=== PATIENT | female | born 1985 | race Caucasian/White ===

== ENCOUNTER 2023-02-17 00:16 | Observation (INO) ==
[2023-02-17] MEDS ORDERED: ONDANSETRON INJ 2 MG/ML 2 ML VIAL IV STA (00:26)
[2023-02-17] MEDS ORDERED: SODIUM CHLORIDE 0.9% 1,000 ML IV ONE ×2 (00:26→01:05)
--- NOTE | 2023-02-17 00:47 | Emergency Department Note ---
Impression & Plan DKA (diabetic ketoacidosis), Influenza A ED Provider Note NAME: MARKEL GILMAN AGE: 37 SEX: F : 1985 ARRIVES VIA: Ambulance INFORMANT: Patient, ED PROVIDER(S): Jr Marcus MD CHIEF COMPLAINT: Influenza HPI: This is a 37-year-old female presenting for nausea/vomiting. Patient was diagnosed to influenza, H3, this morning. She has symptoms since Wednesday. Her physician gave her Tamiflu and did not tell her about any of the adverse side effects. Patient taken to 2 doses of Tamiflu. After starting the Tamiflu she has began having persistent and profuse nausea and vomiting. She has not been to take her medications as result of this. No shortness of breath, chest pain, diarrhea. ROS: See above HPI for pertinent positives & negatives. A total of 10 systems reviewed and were otherwise negative. PAST MEDICAL HISTORY: See Below PAST SURGICAL HISTORY: See Below FAMILY HISTORY: See Below SOCIAL HISTORY: See Below HOME MEDICATIONS: See Below ALLERGIES: See Below VITALS: See Below PHYSICAL EXAMINATION: General: resting comfortably in no acute distress Head: Normocephalic and atraumatic Eyes: Normal inspection, extraocular muscles intact Ear, nose, throat: Normal external exam Neck: Normal range of motion Respiratory: lungs clear to auscultation bilaterally Cardiovascular: Regular rate/rhythm, no murmur GI: soft, nontender, no guarding or rebound Extremities: nontender, moves all extremities Neuro: The patient awake and alert, appropriately conversive, no focal deficits, symmetric faces Skin: Warm, dry, and intact MEDICAL DECISION MAKING: This is a 37-year-old female senting for nausea and vomiting. Patient may have symptoms consistent with influenza versus Tamiflu side effects. Will check basic screening blood work to rule out DKA as patient is a type I diabetic -Laboratory showed anion gap to 17. Will give 2 L of fluid and reevaluation. -Glucose of 355 -Clinically with patient's nausea, vomiting, lack of insulin, suspect slight DKA, will give fluids for resuscitation -Do not believe he requires emergent imaging at this time without hypoxia or abnormal lung sounds -After 2 L, patient appears clinically well but however patient has a anion gap remaining at 14. At this time, will discuss with hospitalist for admission -Discussed with Dr. Saldaña who accepts the patient Differential diagnosis: Influenza, Tamiflu side effects, DKA ER treatment provided: See below Diagnostics interpreted by me: ECG: None Cardiac Monitoring: An order was placed for continuous cardiac monitoring. The monitor shows a rate of 115 with sinus rhythm. Laboratory studies: As stated above and show below. Past Med/Surg History Medical History Anxiety Bipolar 1 disorder Depression Dyslipidemia Hypertension Type 2 diabetes mellitus Surgical History No pertinent past surgical history Social History Smoking Status: Never smoker Tobacco Type: Cigarettes Preferred Language: Danish Feels Safe at Home: Yes Allergies Allergies Allergy/AdvReac Type Severity Reaction Status Date / Time No Known Allergies Allergy Verified 02/17/23 01:18 Home Meds Home Medications Medication Instructions Recorded Confirmed acetaminophen 500 mg tablet 1,000 mg PO Q6H PRN PAIN/FEVER 02/17/23 02/17/23 (Tylenol Extra Strength) doxylamine 6.25 mg-PE 5 mg-DM 10 1 tab PO DIRECTED PRN Cold 02/17/23 02/17/23 mg-acetaminophen 325 mg tablet Symptoms (Vicks NyQuil Severe Cold-Flu) empagliflozin 25 mg tablet 25 mg PO QAM 02/17/23 02/17/23 (Jardiance) gemfibrozil 600 mg tablet 600 mg PO QAM 02/17/23 02/17/23 hydrocodone-homatropine 5 mg-1.5 5 ml PO DIRECTED PRN Cough 02/17/23 02/17/23 mg/5 mL oral syrup insulin aspart U-100 100 unit/mL See Rx Instructions .Route .COMPLEX 02/17/23 02/17/23 (3 mL) subcutaneous pen (Novolog FlexPen U-100 Insulin aspart) insulin glargine 100 unit/mL (3 36 unit subcut HS 02/17/23 02/17/23 mL) subcutaneous pen lisinopril 2.5 mg tablet 2.5 mg PO QAM 02/17/23 02/17/23 metformin 1,000 mg tablet 1,000 mg PO BIDM 02/17/23 02/17/23 oseltamivir 75 mg capsule 75 mg PO BID 02/17/23 02/17/23 pravastatin 10 mg tablet 10 mg PO QDD 02/17/23 02/17/23 sertraline 100 mg tablet 100 mg PO BID 02/17/23 02/17/23 tirzepatide 7.5 mg/0.5 mL 7.5 mg subcut WK 02/17/23 02/17/23 subcutaneous pen injector (Orquidea) Results & Data (ED) Vital Signs Vital Signs - 24 hr 02/17/23 00:21 02/17/23 00:26 02/17/23 02:19 Temperature 37.3 C 37.2 C Temperature Source Oral Oral Pulse Rate 112 H Pulse Rate [Apical] 115 H 105 H Pulse Rhythm [Apical] Regular Pulse Strength [Apical] Normal Respiratory Rate 16 18 16 Respiratory Effort / Characteristics Non-Labored Spontaneous Non-Labored Spontaneous Non-Labored Spontaneous Respiratory Depth Normal Normal Normal Respiratory Pattern Regular Regular Regular Blood Pressure 164/90 H Blood Pressure [Right Arm] 164/90 H 139/91 Blood Pressure Mean 114 Blood Pressure Mean [Right Arm] 114 107 Blood Pressure Position [Right Arm] Lying Pulse Oximetry 93 93 97 Oxygen Delivery Method Room Air Room Air Room Air Sepsis Recent Fever Within 48 Hours Yes Sepsis New/Unexplained Change in Mental Status No Sepsis Action Taken by Nursing No Action Required 02/17/23 04:13 02/17/23 04:13 Temperature Temperature Source Pulse Rate 103 H 103 H Pulse Rate [Apical] Pulse Rhythm [Apical] Pulse Strength [Apical] Respiratory Rate 26 H Respiratory Effort / Characteristics Respiratory Depth Respiratory Pattern Blood Pressure Blood Pressure [Right Arm] Blood Pressure Mean Blood Pressure Mean [Right Arm] Blood Pressure Position [Right Arm] Pulse Oximetry 94 Oxygen Delivery Method Sepsis Recent Fever Within 48 Hours Sepsis New/Unexplained Change in Mental Status Sepsis Action Taken by Nursing Laboratory Data 02/17/23 00:22 02/17/23 02:15 Lab Results 02/17/23 02/17/23 02/17/23 Range/Units 00:20 00:22 02:15 WBC 8.81 (4.8-10.8) K/ul RBC 4.95 (4.20-5.40) M/uL Hgb 14.2 (12.0-16.0) g/dl Hct 42.7 (37.0-47.0) % MCV 86.3 (80.0-100.0) fL MCH 28.7 (25.0-34.0) pg MCHC 33.3 (32.0-36.0) g/dL RDW Std Deviation 41.6 (36.4-46.3) fL RDW Coeff of Gloria 13.2 (11.5-14.5) % Plt Count 106 L (130-400) K/uL MPV 11.8 (9.4-12.4) fL Immature Gran % (Auto) 0.5 % Neut % (Auto) 90.3 % Lymph % (Auto) 3.0 % Webster % (Auto) 6.1 % Eos % (Auto) 0.0 % Baso % (Auto) 0.1 % Neut # (Auto) 7.96 H (1.40-6.50) K/uL Lymph # (Auto) 0.26 L (1.20-3.40) K/uL Webster # (Auto) 0.54 (0.11-0.59) K/uL Eos # (Auto) 0.00 (0.00-0.50) K/uL Baso # (Auto) 0.01 (0.00-0.20) K/uL Immature Gran # (Auto) 0.04 (0.01-0.20) K/uL Sodium 133 L 136 (136-145) mmol/L Potassium 4.2 3.8 (3.5-5.1) mmol/L Chloride 96 L 103 (98-107) mmol/L Carbon Dioxide 20 L 19 L (21-32) mmol/L Anion Gap 17 H 14 H (3-11) BUN 13 11 (6-23) mg/dl Creatinine 0.73 0.62 (0.6-1.2) mg/dl Est Cr Clr Drug Dosing 113.4 133.5 ml/min Est GFR ( Amer) 121.9 133.5 ml/min Est GFR (Non-Af Amer) 105.2 115.2 ml/min BUN/Creatinine Ratio 17.8 17.7 (10-20) Glucose 355 H* 282 H (70-99(Fasting)) mg/dl Calcium 9.6 8.2 L (8.6-10.3) mg/dl Total Bilirubin 0.7 (0.2-1.0) mg/dl AST 10 L (13-39) U/L ALT 16 (7-52) U/L Alkaline Phosphatase 44 (34-104) U/L Total Protein 8.5 H (6.0-8.3) gm/dl Albumin 4.5 (3.4-5.0) gm/dl Globulin 4.0 (2.5-4.0) gm/dl Albumin/Globulin Ratio 1.1 (0.9-2) Adenovirus (PCR) Not Detected (NotDetected) B. pertussis DNA (PCR) Not Detected (NotDetected) B.parapertussis DNA PCR Not Detected (NotDetected) C. pneumoniae DNA (PCR) Not Detected (NotDetected) Coronavirus OC43 (PCR) Not Detected (NotDetected) Coronavirus HKU1 (PCR) Not Detected (NotDetected) Coronavirus 229E (PCR) Not Detected (NotDetected) SARS-CoV-2 (PCR) Not Detected (NotDetected) Coronavirus NL63 (PCR) Not Detected (NotDetected) Human Metapneumovir PCR Not Detected (NotDetected) Influenza A (H3) PCR DETECTED A* (NotDetected) Influenza Type B (PCR) Not Detected (NotDetected) M. pneumoniae (PCR) Not Detected (NotDetected) Parainfluenza 1 (PCR) Not Detected (NotDetected) Parainfluenza 2 (PCR) Not Detected (NotDetected) Parainfluenza 3 (PCR) Not Detected (NotDetected) Parainfluenza 4 (PCR) Not Detected (NotDetected) RSV (PCR) Not Detected (NotDetected) Entero/Rhino (PCR) Not Detected (NotDetected) Administered Medications Discontinued Medications Sodium Chloride (Nss) 1,000 mls @ 999 mls/hr IV .Q1H1M ONE Stop: 02/17/23 01:26 Last Infusion: 02/17/23 01:14 Dose: Infused Documented By: Admin: 02/17/23 00:35 Dose: 999 mls/hr Documented By: VICKEY Acetaminophen (Ofirmev) 1,000 mg in 100 mls @ 400 mls/hr IV NOW STA Stop: 02/17/23 01:19 Last Infusion: 02/17/23 01:35 Dose: Infused Documented By: IDAmelia Admin: 02/17/23 01:12 Dose: 400 mls/hr Documented By: JENNY Sodium Chloride (Nss) 1,000 mls @ 999 mls/hr IV .Q1H1M ONE Stop: 02/17/23 02:05 Last Infusion: 02/17/23 02:41 Dose: Infused Documented By: Admin: 02/17/23 01:15 Dose: 999 mls/hr Documented By: JENNY Ondansetron HCl (Ondansetron Inj 2 Mg/Ml 2 Ml Vial) 4 mg IV NOW STA Stop: 02/17/23 00:27 Last Admin: 02/17/23 00:35 Dose: 4 mg Documented By: VICKEY Discharge Plan Visit Data Chief Complaint: Flu Like Symptoms Stated Complaint: FLU-LIKE SX SINCE WED ED Provider: Jr Marcus Discharge Problem: DKA (diabetic ketoacidosis), Influenza A Patient Disposition: Admitted As Inpatient Discharge Instructions Interventions: ED Discharge Assessment Last Done: 02/17/23 05:34
[2023-02-17 01:01] LABS: Albumin Globulin Ratio 1.1 (0.9-2); Albumin Level 4.5 gm/dl (3.4-5.0); BUN Creatinine Ratio 17.8 (10-20); Bilirubin,Total 0.7 mg/dl (0.2-1.0); Calcium 9.6 mg/dl (8.6-10.3); Creatinine Clr Calc Pharmacy 113.4 ml/min; Est GFR (African American) 121.9 ml/min; Est GFR (Non-African American) 105.2 ml/min; Potassium 4.2 mmol/L (3.5-5.1); Total Protein 8.5 gm/dl (6.0-8.3)
[2023-02-17] MEDS ORDERED: ACETAMINOPHEN 1,000 MG/100 ML VIAL IV STA (01:05)
[2023-02-17 01:16] LABS: Basophils # (auto) 0.01 K/uL (0.00-0.20); Basophils % (auto) 0.1 %; Hematocrit (blood only) 42.7 % (37.0-47.0); Hemoglobin 14.2 g/dl (12.0-16.0); Immature Granulocytes # (auto) 0.04 K/uL (0.01-0.20); Immature Granulocytes % (auto) 0.5 %; Lymphocytes # (auto) 0.26 K/uL (1.20-3.40); Mean Corpuscular Hemoglobin 28.7 pg (25.0-34.0); Mean Corpuscular Hgb Conc 33.3 g/dL (32.0-36.0); Mean Corpuscular Volume 86.3 fL (80.0-100.0); Mean Platelet Volume 11.8 fL (9.4-12.4); Monocytes # (auto) 0.54 K/uL (0.11-0.59); Monocytes % (auto) 6.1 %; Neutrophils # (auto) 7.96 K/uL (1.40-6.50); Neutrophils % (auto) 90.3 %; Platelet Count 106 K/uL (130-400); RDW Coefficient of Variation 13.2 % (11.5-14.5); RDW Standard Deviation 41.6 fL (36.4-46.3); Red Blood Count 4.95 M/uL (4.20-5.40); White Blood Count 8.81 K/ul (4.8-10.8)
[2023-02-17 01:25] LABS: Adenovirus PCR Not Detected (NotDetected); Bordetella parapertussis PCR Not Detected (NotDetected); Bordetella pertussis PCR Not Detected (NotDetected); Chlamydia pneumoniae PCR Not Detected (NotDetected); Coronavirus 229E PCR Not Detected (NotDetected); Coronavirus CoV-2 (COVID19)PCR Not Detected (NotDetected); Coronavirus HKU1 PCR Not Detected (NotDetected); Coronavirus NL63 PCR Not Detected (NotDetected); Coronavirus OC43PCR Not Detected (NotDetected); Human Metapneumovirus PCR Not Detected (NotDetected); Influenza B PCR Not Detected (NotDetected); Mycoplasma pneumoniae PCR Not Detected (NotDetected); Parainfluenza Virus 1 PCR Not Detected (NotDetected); Parainfluenza Virus 2 PCR Not Detected (NotDetected); Parainfluenza Virus 3 PCR Not Detected (NotDetected); Parainfluenza Virus 4 PCR Not Detected (NotDetected); Respiratory Syncytial VirusPCR Not Detected (NotDetected); Rhinovirus/Enterovirus PCR Not Detected (NotDetected)
[2023-02-17 02:11] LABS: Influenza A (H3) PCR DETECTED (NotDetected)
[2023-02-17 03:42] LABS: Calcium 8.2 mg/dl (8.6-10.3); Potassium 3.8 mmol/L (3.5-5.1)
[2023-02-17 03:47] LABS: BUN Creatinine Ratio 17.7 (10-20); Creatinine Clr Calc Pharmacy 133.5 ml/min; Est GFR (African American) 133.5 ml/min; Est GFR (Non-African American) 115.2 ml/min
[2023-02-17] MEDS ORDERED: NITROGLYCERIN SL 0.4 MG/TAB TAB SL PRN (05:33)
[2023-02-17] MEDS ORDERED: HYDROcodone/HOMATROPINE SYRUP 5MG/1.5MG 5ML UDP PO PRN (05:33)
[2023-02-17] MEDS ORDERED: STAT IV Infusion **Titration per Protocol STA (05:33)
[2023-02-17] MEDS ORDERED: ACETAMINOPHEN 325 MG TAB PO PRN (05:33)
[2023-02-17] MEDS ORDERED: PHARMACY GLYCEMIC MGMT CONSULT PRN (05:33)
[2023-02-17] MEDS ORDERED: DKA GOAL RANGE 150-250 mg/dl ONE (05:33)
[2023-02-17] MEDS ORDERED: SODIUM CHLORIDE 0.9% 1,000 ML IV SCH (05:33)
[2023-02-17] MEDS ORDERED: ONDANSETRON INJ 2 MG/ML 2 ML VIAL IV PRN (05:33)
[2023-02-17] MEDS ORDERED: NovoLIN-R BOLUS FROM BAG IV ONE (06:00)
[2023-02-17] MEDS ORDERED: CARBOHYDRATES FOR HYPOGLYCEMIA PO PRN (06:00)
[2023-02-17] MEDS ORDERED: DEXTROSE 50% 50 ML SYRINGE IV PRN (06:00)
[2023-02-17] MEDS ORDERED: GLUCAGON FOR INJ 1 MG VIAL IM PRN (06:00)
[2023-02-17] MEDS ORDERED: GLUCOSE 10 TAB/TUBE PO PRN (06:00)
[2023-02-17] MEDS ORDERED: INSULIN REGULAR 250 UNITS in SODIUM CHLORIDE 0.9% 247.5 ML IV SCH (06:00)
[2023-02-17] MEDS ORDERED: GLUCOSE 40% GEL 15 GM TUBE PO PRN (06:00)
[2023-02-17] MEDS ORDERED: INSULIN ASPART PER UNIT CHARGE SC SCH (07:30)
[2023-02-17] MEDS ORDERED: PENDING 1/2NSS+20mEq KCL IVF SCH (08:00)
[2023-02-17] MEDS ORDERED: PENDING D5 1/2NS+20mEq KCL IVF SCH (08:00)
[2023-02-17] MEDS ORDERED: ENOXAPARIN INJ 40 MG/0.4 ML SYR SQ SCH (09:00)
[2023-02-17] MEDS ORDERED: lisinopril 2.5 MG TAB PO SCH (09:00)
[2023-02-17] MEDS ORDERED: SERTRALINE HCL 100 MG TABLET PO SCH (09:00)
[2023-02-17] MEDS ORDERED: ATORVASTATIN 20 MG TAB PO SCH (09:00)
--- OUTSIDE RECORDS SUMMARY | 2023-02-17 09:19 | External Medical Summary ---
Author Name Unknown Address Unknown Organization K01:LABORAT[facility] [address] [facility] [address] Laboratory Report Ordering Provider Test Date Status JASPREET BENITO 02/15/2023 11:07:58 Final Observation Date Value Abnormality Reference (Units) Status Streptococcus pyogenes DNA [Presence] in Throat by MINDI with probe detection 02/15/2023 11:07:58 Negative. No Group A Streptococcus detected by PCR (amplified probe). Negative Final This test was developed and its performance characteristics determined by [facility]. It has not been cleared or approved by the FDA. The laboratory is regulated under CLIA as qualified to perform high- complexity testing. This test is used for clinical purposes. It should not be regarded as investigational or for research. Performing Location [facility] [place] [facility] [address] [facility] [address]
--- OUTSIDE RECORDS SUMMARY | 2023-02-17 09:19 | External Medical Summary | Summary of Care ---
Author Name Unknown Organization [facility] Address [address] [place] [address] Phone [phone] Care Team Providers Care Cosmetics Demonstrator Name Role Phone Jackie Rivera MD Primary Care Provid er Reason for Visit * Reason Onset Date Comments Fax 02/01/2023 Encounter Details Date Type Department Care Team (Late st Contact Info) Description 02/01/[address] [facility] [address] [place] [address] Jackie Rivera MD [address] [place] [address] Fax Allergies No known active allergiesdocumented as of this encounter (statuses as of 02/04/2023) Medications Medication Sig Dispensed Refills Start Date End Date Status Accu-Chek Guide Me w/Device Kit Use as directed. Use to test blood sugars 4 times a day Dx: E11.9 may substitute preferred brand 1 Kit 0 07/03/2020 Active Empagliflozin 25 MG Oral Tablet (Jardiance)Indicati ons:Type 2 diabetes mellitus with hemoglobin A1c goal of less than 7.0% ([facility]) Take 1 Tablet by mouth in the morning. 90 Tablet 3 03/10/2022 Active Accu-Chek Guide In Vitro Strip (Glucose Blood)Indications:T ype 2 diabetes mellitus with hemoglobin A1c goal of less than 7.0% (HCC) USE TO TEST BLOOD SUGARS 4 TIMES A DAY DX: E11.9 MAY SUBSTITUTE PREFERRED BRAND 400 Strip 3 03/10/2022 Active Accu-Chek FastClix LancetsIndications: Type 2 diabetes mellitus with hemoglobin A1c goal of less than 7.0% (HCC) Use to test blood sugars 4 times a day Dx: E11.9 may substitute preferred brand 408 Each 3 03/10/2022 Active metFORMIN HCl 1000 MG Oral Tablet (Glucophage)Indicat ions:Type 2 diabetes mellitus with hemoglobin A1c goal of less than 7.0% (HCC) TAKE BY MOUTH 1 TABLET 2 TIMES A DAY WITH MORNING AND EVENING MEALS . 180 Tablet 3 03/10/2022 Active Gemfibrozil 600 MG Oral Tablet (Lopid)Indications: High triglycerides,Dysli pidemia, goal LDL below 100 Take 1 tab once a day in the morning. 90 Tablet 3 03/10/2022 Active Insulin Glargine Solostar 100 UNIT/ML Subcutaneous Solution Pen-injector Inject 36 Units under the skin in the morning. 45 mL 3 05/06/2022 Active Fluticasone Propionate 50 MCG/ACT Nasal Suspension (Flonase)Indication s:Viral URI with cough Administer 2 Sprays into each nostril in the morning. 1 Each 0 05/26/2022 Active BD Pen Needle Short U/F 31G X 8 MM (Insulin Pen Needle)Indications: Type 2 diabetes mellitus with hemoglobin A1c goal of less than 7.0% (HCC) USE WITH LANTUS AND NOVOLOG TO INJECT 4 TIMES A DAY. DX E11.9 300 Each 2 06/19/2022 Active Mounjaro 10 MG/0.5ML Subcutaneous Solution Pen-injector (Tirzepatide)Indica tions:Type 2 diabetes mellitus with hemoglobin A1c goal of less than 7.0% (HCC) Inject 10 mg under the skin once a week. 2 mL 3 08/30/2022 Active Additional Information Patient not taking.Reported on 10/22/2022 Lisinopril 2.5 MG Oral Tablet (Prinivil)Indicatio ns:Microalbuminuria ,HTN, goal below 130/80 Take 1 Tablet by mouth daily. 90 Tablet 3 09/11/2022 Active Pravastatin Sodium 10 MG Oral Tablet (Pravachol)Indicati ons:Dyslipidemia Take 1 Tablet by mouth daily with dinner. 90 Tablet 3 09/11/2022 Active Sertraline HCl 100 MG Oral Tablet (Zoloft)Indications :Generalized anxiety disorder,Adjustment disorder with depressed mood TAKE 1 TABLET BY MOUTH IN THE MORNING AND BEFORE BEDTIME 60 Tablet 5 09/17/2022 Active NovoLOG FlexPen 100 UNIT/ML Subcutaneous Solution Pen-injector (insulin aspart)Indications: Type 2 diabetes mellitus with hemoglobin A1c goal of less than 7.0% (HCC) INJECT 30 UNITS BEFORE BREAKFAST, 36 UNITS BEFORE LUNCH, AND 30 UNITS BEFORE SUPPER 30 mL 5 10/12/2022 Active Mounjaro 7.5 MG/0.5ML Subcutaneous Solution Pen-injector (Tirzepatide)Indica tions:Type 2 diabetes mellitus without complication, with long-term current use of insulin ([facility]) Inject 7.5 mg under the skin once a week. 2 mL 3 01/19/2023 Active documented as of this encounter (statuses as of 02/04/2023) Active Problems Problem Noted Date Diagnosed Date Dyslipidemia 09/11/2022 Microalbuminuria 03/10/2022 Food insecurity 01/19/2022 Overview: Per [facility] Protocol Family history of Troy's disease 11/14/2021 Severe obesity with body mas s index (BMI) of 35.0 to 39.9 with serious comorbidity 11/04/2021 Obesity, Class II, BMI 35-39.9, isolated (see ac tual BMI) 05/20/2020 Hypertension 10/26/2011 Overview: Per HTN Protocol #27. DYSLIPIDEMIA, GOAL LDL BELOW 100 02/25/2009 Overview: Per Lipid Taxonomy. Type 2 diabetes mellitus 01/03/2009 Overview: Per Diabetes Taxonomy. ICD-10 update of inactive term High triglycerides 11/04/2008 Anxiety Overview: sees Psychiatry Depression Overview: sees Psychiatry [place] documented as of this encounter (statuses as of 02/04/2023) Resolved Problems Problem Noted Date Diagnosed Date Resolved Date Affective psychosis, bipolar 11/05/2016 09/11/2022 Obesity, morbid (more than 1 00 lbs over ideal weight or BMI > 40) 08/20/2009 06/10/2017 Overview: Per Obesity Protocol, #19 ICD-10 update of inactive term Major depressive disorder Overview: sees Psychiatry ICD-10 update of inactive term documented as of this encounter (statuses as of 02/04/2023) Immunizations Name Administration Dates Next Due HPV Vaccine, 4-Valent 02/04/2010,07/25/2009,06/2009 Hepatitis B, 20+ yrs 04/30/2020,12/29/2019,10/10 Pneumococcal Polysaccharide PPV23 (Pneumovax) 04/11/2009 Seasonal Influenza, QUAD, wi th Preserv, 6 mons & Above, 0.5 mL, IM 02/05/2017 Seasonal Influenza, Quadriva lent, No Preserve, IM 01/01/2021,11/14/2018,12/10/2014 Seasonal Influenza, Recombin ant, RIV4, PF, (Flublock) 12/25/2019 Seasonal Influenza, Split, I IV3, With Preserve, Inj 12/07/2013,12/06/2013,01/06/2013,01/12,12/11/2010,02/04/2010 TD, Preservative Free 10/11/2019,08/06/2001 TDAP (age 11 and older)(Adacel) 04/11/2009 documented as of this encounter Social History Tobacco Use Types Packs/Day Years Used Date Smoking Tobacco: Never Smokeless Tobacco: Never Alcohol Use Standard Drinks/Week Comments No 0 (1 standard drink = 0.6 oz pur e alcohol) PHQ-2 Answer Date Recorded PHQ Adult Total Score 2 11/04/2021 Hunger Vital Sign Answer Date Recorded Within the past 12 months, y ou worried that your food would run out before you got the money to buy more. Sometimes true Within the past 12 months, t he food you bought just didn't last and you didn't have money to get more. Sometimes true Sex and Gender Information Value Date Recorded Sex Assigned at Female 12/31/2021 7:26 AM EDT Gender Identity Female 12/31/2021 7:26 AM EDT Sexual Orientation Straight 12/31/2021 7: 26 AM EDT Job Start Date Occupation Industry Not on file Not on file Not on file documented as of this encounter Miscellaneous Notes * Telephone Encounter - Lashell Singletary OSA - 02/04/2023 10:10 AM EST 02/04/23 DK checked the filing cabinet where orders are filed after being faxed and the paperwork for [facility] was successfully faxed back to [facility] on January 25 and February 02. [facility] refaxed the 3 orders and called [facility] and talked to Pat and confirmed that all three orders were indeed received and scanned into the pts chart. * Telephone Encounter - Odette Pink LPN - 02/03/2023 1:55 PM EST Called [facility] and requested they refax order to us. They will fax. * Telephone Encounter - Hunter Lopez RPh - 02/02/2023 2:34 PM EST No forms have been received by [facility] at [place] as of 02/02/2023 at 2:53 PM . Hunter Wilson RPh, CACP, CDE Clinical Pharmacist [facility] 02/02/2023, 2:53 PM * Telephone Encounter - Maricruz Monahan OSA - 02/01/2023 2:31 PM EST [facility] medical faxed an order for decom supplies 01/26/23. They are asking that it be signed and faxedback. documented in this encounter Plan of Treatment Upcoming Encounters Date Type Department Care Team (Late st Contact Info) Description 02/16/2023 6:10 PM EST Pharmacy Pharmacy, [place] [address] [place] [address] [place], [facility] [address] [facility], [place] [address] 03/19/2023 8:00 AM EST Office Visit Family [facility], [place] [address] [facility], [place] [id number] Jackie Rivera MD [address], [place] [address] Health Maintenance Due Date Last Done Comments COVID-19 Vaccine (#1) 1985 Hepatitis C Screening 06/27/2003 Pneumococcal Vaccine: Pediatrics (0 to 5 Years) and At-Risk Patients (6 to 64 Years) (2 - PCV) 04/11/2010 04/11/2009 HPV/Co-Test 06/27/2015 Cervical Cancer Screening 12/21/2021 Pap Smear 12/21/2021 12/21/2018 Diabetic Eye Exam 06/12/2022 06/12/2021, , 04/14/2013, Additional history exists Depression Screening 11/04/2022 11/04/2021 Diabetic Foot Exam 11/04/2022 11/04/2021, 0 08/08/2020, 10/11/2019, Additional history exists Influenza Vaccine (FLU shot) (#1) 2022 01/01/2021, 12/25/2019, 11/14/2018, Additional history exists HbA1c 03/10/2023 09/07/2022, 04/09, 11/04/2021, Additional history exists Albumin/Creatinine Ratio 05/05/2023 023, 04/30/2020, 05/10/2018, Additional history exists GFR 05/05/2023 05/05/2022, 10/08, 05/20/2021, Additional history exists B-12 09/08/2023 09/07/2022, 05/06, 04/30/2020, Additional history exists DTaP,Tdap,and Td Vaccines (4 - Td or Tdap) 10/10/2029 10/11/2019, 04/11/2009, 08/06/2001 GARDASIL-HPV IMMUNIZATION SERIES Completed 02/04/2010, 07/25/2009, 04/11/2009 Hepatitis B Completed 04/30/2020, 12/07, 10/11/2019 MENINGOCOCCAL (MENACTRA/MENVEO) Aged Out No longer eligible based on patient's age to complete this topic documented as of this encounter Medical Devices Not on filedocumented as of this encounter Care Teams Cosmetics Demonstrator Relationship Specialty Start Date End Date Jackie Rivera MD [address] [facility], [place] [address] PCP - General Family Medicine 11/03/21 documented as of this encounter
--- OUTSIDE RECORDS SUMMARY | 2023-02-17 09:19 | External Medical Summary | Summary of Care ---
Author Name Unknown Organization [facility] Address [address] [place] [address] Phone [phone] Care Team Providers Care Edge Grinder Name Role Phone Jackie Rivera MD Primary Care Provid er Reason for Visit * Reason Comments Appointment Encounter Details Date Type Department Care Team (Late st Contact Info) Description 02/16/2023 6:10 PM [facility] Pharmacy, [place] [address] [place] [address] [facility] [address] [place] [address] Type 2 diabetes mellitus without complication, with long-term current use of insulin ([facility])* Allergies No known active allergiesdocumented as of this encounter (statuses as of 02/16/2023) Medications Medication Sig Dispensed Refills Start Date End Date Status Accu-Chek Guide Me w/Device Kit Use as directed. Use to test blood sugars 4 times a day Dx: E11.9 may substitute preferred brand 1 Kit 0 07/03/2020 Active Additional Information Patient not taking.Reported on 02/15/2023 Empagliflozin 25 MG Oral Tablet (Jardiance)Indicati ons:Type 2 diabetes mellitus with hemoglobin A1c goal of less than 7.0% (HCC) Take 1 Tablet by mouth in the morning. 90 Tablet 3 03/10/2022 Active Accu-Chek Guide In Vitro Strip (Glucose Blood)Indications:T ype 2 diabetes mellitus with hemoglobin A1c goal of less than 7.0% (HCC) USE TO TEST BLOOD SUGARS 4 TIMES A DAY DX: E11.9 MAY SUBSTITUTE PREFERRED BRAND 400 Strip 3 03/10/2022 Active Additional Information Patient not taking.Reported on 02/15/2023 Accu-Chek FastClix LancetsIndications: Type 2 diabetes mellitus with hemoglobin A1c goal of less than 7.0% (HCC) Use to test blood sugars 4 times a day Dx: E11.9 may substitute preferred brand 408 Each 3 03/10/2022 Active Additional Information Patient not taking.Reported on 02/15/2023 metFORMIN HCl 1000 MG Oral Tablet (Glucophage)Indicat [...] the morning. 1 Each 0 05/26/2022 Active Additional Information Patient not taking.Reported on 02/15/2023 BD Pen Needle Short U/F 31G X [...] hemoglobin A1c goal of less than 7.0% ([facility]) INJECT 30 UNITS BEFORE BREAKFAST, 36 UNITS BEFORE LUNCH, AND 30 UNITS BEFORE SUPPER 30 mL 5 10/12/2022 Active Mounjaro 7.5 MG/0.5ML Subcutaneous Solution Pen-injector (Tirzepatide)Indica tions:Type 2 diabetes mellitus without complication, with long-term current use of insulin ([facility]) Inject 7.5 mg under the skin once a week. 2 mL 3 01/19/2023 Active HYDROcodone Bit-Homatrop MBr 5-1.5 MG/5ML Oral Solution (Hycodan)Indication s:Sore throat,Fever, unspecified fever cause,Malaise and fatigue Take 5 mL by mouth every 6 hours as needed for Cough. 120 mL 0 02/15/2023 Active documented as of this encounter (statuses as of 02/16/2023) Active Problems Problem Noted Date Diagnosed Date [...] as of this encounter (statuses as of 02/16/2023) Resolved Problems Problem Noted Date Diagnosed Date Resolved Date Affective psychosis, bipolar 11/05/2016 09/11/2022 Obesity, morbid (more than 1 00 lbs over ideal weight or BMI > 40) 08/20/2009 06/10/2017 Overview: Per Obesity Protocol, #19 ICD-10 update of inactive term Major depressive disorder Overview: sees Psychiatry ICD-10 update of inactive term documented as of this encounter (statuses as of 02/16/2023) Immunizations Name Administration Dates Next Due HPV [...] Packs/Day Years Used Date Smoking Tobacco: Never Passive Smoke Exposure: Current Smokeless Tobacco: Never Alcohol Use Standard Drinks/Week [...] on file documented as of this encounter Progress Notes * Mariella Burroughs PHARM Tech - 02/16/2023 8:20 AM EST Patient Phone Numbers [employer] [phone] Sent patient Veodia message to schedule [facility] appointment for diabetes management. [facility] message sent --yes Clinic will follow up again in 4 week(s). [Attempt # 2] Thank you, Mariella Burroughs Rad Tech [facility] 02/16/2023,8:20 AM documented in this encounter Plan of Treatment Upcoming Encounters Date Type Department Care Team (Late st Contact Info) Description 03/16/2023 6:10 PM EST Pharmacy Pharmacy, [place] [address] [place] [facility] [place] [address] [facility] [address] [place] [facility] [address] 03/19/2023 8:00 AM EST Office Visit [facility], [place] [address] [facility] [phone] Jackie Rivera MD [address] [place] [facility] [address] Health Maintenance Due Date Last Done Comments [...] Not on filedocumented as of this encounter Visit Diagnoses Diagnosis Type 2 diabetes mellitus without complication, with long-term current use of insulin (HCC)- Primary documented in this encounter Additional Health Concerns Infection Onset Date Last Indicated Resolved Time Influenza (seasonal) 02/15/2023 02/15/2023 documented as of this encounter Care Teams Edge Grinder Relationship Specialty Start Date End Date Jackie Rivera MD [address] [place] [address] PCP - General Family Medicine 11/03/21 documented as of this encounter
--- OUTSIDE RECORDS SUMMARY | 2023-02-17 09:19 | External Medical Summary ---
Author Name Unknown Address Unknown Organization K01:[facility] [place] [address] [facility] [address] Laboratory Report Ordering Provider Test Date Status JASPREET BENITO 02/15/2023 11:06:49 Final Observation Date Value Abnormality Reference (Units ) Status Adenovirus DNA [Presence] in Nasopharynx by MINDI with non-probe detection 02/15/2023 11:06:49 Negative Negative Final Human coronavirus 229E RNA [Presence] in Nasopharynx by MINDI with non-probe detection 02/15/2023 11:06:49 Negative Negative Final Human coronavirus HKU1 RNA [Presence] in Nasopharynx by MINDI with non-probe detection 02/15/2023 11:06:49 Negative Negative Final Human coronavirus NL63 RNA [Presence] in Nasopharynx by MINDI with non-probe detection 02/15/2023 11:06:49 Negative Negative Final Human coronavirus OC43 RNA [Presence] in Nasopharynx by MINDI with non-probe detection 02/15/2023 11:06:49 Negative Negative Final SARS-CoV-2 (COVID-19) RNA [Presence] in Nasopharynx by MINDI with non-probe detection 02/15/2023 11:06:49 Negative Negative Final Human metapneumovirus RNA [Presence] in Nasopharynx by MINDI with non-probe detection 02/15/2023 11:06:49 Negative Negative Final Rhinovirus+Enterovirus RNA [Presence] in Nasopharynx by MINDI with non-probe detection 02/15/2023 11:06:49 Negative Negative Final Influenza virus A H3 RNA [Presence] in Nasopharynx by MINDI with non-probe detection 02/15/2023 11:06:49 Positive Abnormal Negative Final Influenza A virus Subtype H3 detected by PCR (amplified probe). Test results reported to [facility]. Influenza virus B RNA [Prese nce] in Nasopharynx by MINDI with non-probe detection 02/15/2023 11:06:49 Negative Negative Final Parainfluenza virus 1 RNA [P resence] in Nasopharynx by MINDI with non-probe detection 02/15/2023 11:06:49 Negative Negative Final Parainfluenza virus 2 RNA [P resence] in Nasopharynx by MINDI with non-probe detection 02/15/2023 11:06:49 Negative Negative Final Parainfluenza virus 3 RNA [P resence] in Nasopharynx by MINDI with non-probe detection 02/15/2023 11:06:49 Negative Negative Final Parainfluenza virus 4 RNA [P resence] in Nasopharynx by MINDI with non-probe detection 02/15/2023 11:06:49 Negative Negative Final Respiratory syncytial virus RNA [Presence] in Nasopharynx by MINDI with non-probe detection 02/15/2023 11:06:49 Negative Negative F inal Bordetella pertussis.pertuss is toxin promoter region [Presence] in Nasopharynx by MINDI with non-probe detection 02/15/2023 11:06:49 Negative Negative Final Chlamydophila pneumoniae DNA [Presence] in Nasopharynx by MINDI with non-probe detection 02/15/2023 11:06:49 Negative Negative Final Mycoplasma pneumoniae DNA [P resence] in Nasopharynx by MINDI with non-probe detection 02/15/2023 11:06:49 Negative Negative Final Bordetella parapertussis IS1 001 DNA [Presence] in Nasopharynx by MINDI with non-probe detection 02/15/2023 11:06:49 Negative Negative F inal
The primers that detect Rhinovirus may cross react with some Enterorviruses. The validation of bronchial specimens, tracheal aspirates, and throats for this assay was developed and performance characteristics determined by [employer]. The validation of alternate specimen types has not been cleared or approved by the U.S. Food and Drug Administration (FDA). It has been determined that such clearance or approval is not necessary. Performing Location [facility] [place] [facility] [address] [facility] [place]. [facility] [address]
--- OUTSIDE RECORDS SUMMARY | 2023-02-17 09:19 | External Medical Summary | Summary of Care ---
Author Name Unknown Organization [facility] Address [address] [place] [address] Phone [phone] Care Team Providers Care Manager Of Procurement Name Role Phone Jackie Rivera MD Primary Care Provid er Encounter Details Date Type Department Care Team (Late st Contact Info) Description 02/16/2023 Telephone [facility] [address] [place] [address] Jackie Rivera MD [address] [place] [address] Allergies No known active allergiesdocumented as of [...] hemoglobin A1c goal of less than 7.0% ([facility]) Take 1 Tablet by mouth in the [...] hemoglobin A1c goal of less than 7.0% ([facility]) INJECT 30 UNITS BEFORE BREAKFAST, 36 UNITS BEFORE LUNCH, AND 30 UNITS BEFORE SUPPER 30 mL 5 10/12/2022 Active Mounjaro 7.5 MG/0.5ML Subcutaneous Solution Pen-injector (Tirzepatide)Indica tions:Type 2 diabetes mellitus without complication, with long-term current use of insulin ([facility]) Inject 7.5 mg under the skin once a week. 2 mL 3 01/19/2023 Active HYDROcodone Bit-Homatrop MBr 5-1.5 MG/5ML Oral Solution (Hycodan)Indication s:Sore throat,Fever, unspecified fever cause,Malaise and fatigue Take 5 mL by mouth every 6 hours as needed for Cough. 120 mL 0 02/15/2023 Active Oseltamivir Phosphate 75 MG Oral Capsule (Tamiflu)Indication s:Influenza A Take 1 Capsule by mouth in the morning and 1 Capsule before bedtime. Do all this for 5 days. For 5 days.. 10 Capsule 0 02/16/2023 02/21/2023 Active documented as of this encounter (statuses as of 02/16/2023) Active Problems Problem Noted Date Diagnosed Date Dyslipidemia 09/11/2022 Microalbuminuria 03/10/2022 Food insecurity 01/19/2022 Overview: Per [facility] Protocol Family history of Troy's disease [...] encounter Miscellaneous Notes * Telephone Encounter - Jackie Rivera MD - 02/16/2023 12:50 PM EST See result note Spoke with patient over the phone, she was hoarse and couldn't speak so she allowed her mom to speak with me - and we discussed influenza A positive result, supportive care, start tamiflu. Sent to patient's pharmacy of choice. Answered all questions. documented in this encounter Plan of Treatment Upcoming Encounters Date Type Department Care Team (Late st Contact Info) Description 02/16/2023 6:10 PM EST Pharmacy Pharmacy, [place] [address] [place] [address] [place], [facility] [place] [address] Type 2 diabetes mellitus without complication, with long-term current use of insulin (HCC)* 03/16/2023 6:10 PM EST Pharmacy Pharmacy, [place] [address] [place] [facility] [place] [address] [facility] [address] [place] [facility] [place] [place] [address] 03/19/2023 8:00 AM EST Office Visit [facility], [place] [address] [facility], [place] [phone] Jackie Rivera MD [address] [facility], [place] [id number] Health Maintenance Due Date Last Done Comments [...] long-term current use of insulin (HCC)- Primary Influenza A- Primary Influenza with other respiratory manifestations documented in this encounter Additional Health Concerns Infection Onset Date Last Indicated Resolved Time Influenza (seasonal) 02/15/2023 02/15/2023 documented as of this encounter Care Teams Manager Of Procurement Relationship Specialty Start Date End Date Jackie Rivera MD [address] [place] [address] PCP - General Family Medicine 11/03/21 documented as of this encounter
--- OUTSIDE RECORDS SUMMARY | 2023-02-17 09:19 | External Medical Summary | Summary of Care ---
Author Name Unknown Organization [facility] Address [address] [place] [address] Phone [phone] Care Team Providers Care Machine Hoop Maker Name Role Phone Jackie Rivera MD Primary Care Provid er Reason for Visit * Reason Comments Acute Fever with sweats an d chillsSorethroat with difficulty swollowing and talkingHead and body achesPainful coughing fits with yellowish/redish dischargeUnable to eat Sneezing Encounter Details Date Type Department Care Team (Late st Contact Info) Description 02/15/2023 10:40 AM EST Office Visit [facility] [address] [place] [address] Jackie Rivera MD [address] [place] [address] Fever, unspecified fever cause*; Sore throat; Malaise and fatigue Allergies No known active allergiesdocumented as of this encounter (statuses as of 02/15/2023) Medications Medication Sig Dispensed Refills Start Date [...] hemoglobin A1c goal of less than 7.0% ([facility]) INJECT 30 UNITS BEFORE BREAKFAST, 36 UNITS BEFORE LUNCH, AND 30 UNITS BEFORE SUPPER 30 mL 5 10/12/2022 Active Mounjaro 7.5 MG/0.5ML Subcutaneous Solution Pen-injector (Tirzepatide)Indica tions:Type 2 diabetes mellitus without complication, with long-term current use of insulin ([facility]) Inject 7.5 mg under the skin once a week. 2 mL 3 01/19/2023 Active HYDROcodone Bit-Homatrop MBr 5-1.5 MG/5ML Oral Solution (Hycodan)Indication s:Sore throat,Fever, unspecified fever cause,Malaise and fatigue Take 5 mL by mouth every 6 hours as needed for Cough. 120 mL 0 02/15/2023 Active documented as of this encounter (statuses as of 02/15/2023) Active Problems Problem Noted Date Diagnosed Date Dyslipidemia 09/11/2022 Microalbuminuria 03/10/2022 Food insecurity 01/19/2022 Overview: Per [facility] Protocol Family history of Troy's [...] as of this encounter (statuses as of 02/15/2023) Resolved Problems Problem Noted Date Diagnosed Date Resolved Date Affective psychosis, bipolar 11/05/2016 09/11/2022 Obesity, morbid (more than 1 00 lbs over ideal weight or BMI > 40) 08/20/2009 06/10/2017 Overview: Per Obesity Protocol, #19 ICD-10 update of inactive term Major depressive disorder Overview: sees Psychiatry ICD-10 update of inactive term documented as of this encounter (statuses as of 02/15/2023) Immunizations Name Administration Dates Next Due HPV [...] Passive Smoke Exposure: Current Smokeless Tobacco: Never Tobacco Cessation:Counseling Given: Not Answered Alcohol Use Standard Drinks/Week Comments No 0 [...] on file documented as of this encounter Last Filed Vital Signs Vital Sign Reading Time Taken Comments Blood Pressure 108/60 02/15/2023 10:50 AM EST Pulse 99 02/15/2023 10:50 AM EST Temperature 36.8 C (98.2 F) 02/15/2023 1 0:50 AM EST Respiratory Rate 18 02/15/2023 10:5 0 AM EST Oxygen Saturation 97% 02/15/2023 10: 50 AM EST Inhaled Oxygen Concentration - - Weight 86.1 kg (189 lb 12.8 oz) 023 10:50 AM EST Height - - Body Mass Index 33.62 09/11/2022 7:39 AM EDT documented in this encounter Progress Notes * Jackie Rivera MD - 02/15/2023 10:54 AM EST ASSESSMENT / PLAN: Kit Littlejohn is a 37 year old female with PMHx T2DM on insulin / anxiety / bipolar / depression / h/o club foot s/p 4 pedal surgeries / obesity / HTN / hypertriglyceridemia - here for acute A/P: This is day 4 of illness and not improving - reviewed supportive care like steroid containing nasalsprays vs saline spray, antihistamine, and pushing fluids. Sugar free hycodan sent Discussed risks and benefits of proceeding with supportive care at this time. Patient elects to proceed. Script sent and instructed on use. no note requested. Fever, unspecified fever cause (Primary) - RESPIRATORY PATHOGEN PANEL, PCR; Future; Expected date: 02/15/2023 - RESPIRATORY PATHOGEN PANEL, PCR - GROUP A STREP PCR - STREP A SCREEN, POINT OF CARE (ENTER/EDIT) - HYDROcodone Bit-Homatrop MBr 5-1.5 MG/5ML Oral Solution (Hycodan); Take 5 mL by mouth every 6 hours as needed for Cough. Sore throat - RESPIRATORY PATHOGEN PANEL, PCR; Future; Expected date: 02/15/2023 - RESPIRATORY PATHOGEN PANEL, PCR - GROUP A STREP PCR - HYDROcodone Bit-Homatrop MBr 5-1.5 MG/5ML Oral Solution (Hycodan); Take 5 mL by mouth every 6 hours as needed for Cough. Malaise and fatigue - RESPIRATORY PATHOGEN PANEL, PCR; Future; Expected date: 02/15/2023 - RESPIRATORY PATHOGEN PANEL, PCR - HYDROcodone Bit-Homatrop MBr 5-1.5 MG/5ML Oral Solution (Hycodan); Take 5 mL by mouth every 6 hours as needed for Cough. If needed, prefers contact by: Ok to leave message on phone: SUBJECTIVE: Nursing Notes: Odette Pink LPN 02/15/23 1052 Signed Chief Complaint Patient presents with Acute Fever with sweats and chills Sorethroat with difficulty swollowing and talking Head and body aches Painful coughing fits with yellowish/redish discharge Unable to eat Sneezing HPI: Kit Littlejohn is a 37 year old female. Here for recheck. This is day 4 of illness - endorses fevers / chills / sore throat / cough . Has tried covid test was negative this morning Sick contacts? no Missed days of work / needs doctor's note? no Sugars are stable Appetite decr Reviewed sources 1- Patient Active Problem List Diagnosis Code High triglycerides E78.1 Anxiety F41.9 Depression F32.A Type 2 diabetes mellitus (HCC) E11.9 DYSLIPIDEMIA, GOAL LDL BELOW 100 E78.5 Hypertension I10 Obesity, Class II, BMI 35-39.9, isolated (see actual BMI) E66.9 [place] Q66.89 Severe obesity with body mass index (BMI) of 35.0 to 39.9 with serious comorbidity (HCC) E66.01 Family history of Troy's disease Z83.49 Food insecurity Z59.41 Microalbuminuria R80.9 Dyslipidemia E78.5 Current Outpatient Medications Medication Sig Dispense Refill Empagliflozin 25 MG Oral Tablet (Jardiance) Take 1 Tablet by mouth in the morning. 90 Tablet 3 metFORMIN HCl 1000 MG Oral Tablet (Glucophage) TAKE BY MOUTH 1 TABLET 2 TIMES A DAY WITH MORNING AND EVENING MEALS . 180 Tablet 3 Gemfibrozil 600 MG Oral Tablet (Lopid) Take 1 tab once a day in the morning. 90 Tablet 3 Insulin Glargine Solostar 100 UNIT/ML Subcutaneous Solution Pen-injector Inject 36 Units under the skin in the morning. 45 mL 3 BD Pen Needle Short U/F 31G X 8 MM (Insulin Pen Needle) USE WITH LANTUS AND NOVOLOG TO INJECT 4 TIMES A DAY. DX E11.9 300 Each 2 Lisinopril 2.5 MG Oral Tablet (Prinivil) Take 1 Tablet by mouth daily. 90 Tablet 3 Pravastatin Sodium 10 MG Oral Tablet (Pravachol) Take 1 Tablet by mouth daily with dinner. 90 Tablet 3 Sertraline HCl 100 MG Oral Tablet (Zoloft) TAKE 1 TABLET BY MOUTH IN THE MORNING AND BEFORE [id number] Tablet 5 NovoLOG FlexPen 100 UNIT/ML Subcutaneous Solution Pen-injector (insulin aspart) INJECT 30 UNITS BEFORE BREAKFAST, 36 UNITS BEFORE LUNCH, AND 30 UNITS BEFORE SUPPER 30 mL 5 Mounjaro 7.5 MG/0.5ML Subcutaneous Solution Pen-injector (Tirzepatide) Inject 7.5 mg under the skinonce a week. 2 mL 3 HYDROcodone Bit-Homatrop MBr 5-1.5 MG/5ML Oral Solution (Hycodan) Take 5 mL by mouth every 6 hours as needed for Cough. 120 mL 0 Accu-Chek Guide Me w/Device Kit Use as directed. Use to test blood sugars 4 times a day Dx: E11.9 may substitute preferred brand (Patient not taking: Reported on 02/15/2023) 1 Kit 0 Accu-Chek Guide In Vitro Strip (Glucose Blood) USE TO TEST BLOOD SUGARS 4 TIMES A DAY DX: E11.9 MAYSUBSTITUTE PREFERRED BRAND (Patient not taking: Reported on 02/15/2023) 400 Strip 3 Accu-Chek FastClix Lancets Use to test blood sugars 4 times a day Dx: E11.9 may substitute preferred brand (Patient not taking: Reported on 02/15/2023) 408 Each 3 Fluticasone Propionate 50 MCG/ACT Nasal Suspension (Flonase) Administer 2 Sprays into each nostril in the morning. (Patient not taking: Reported on 02/15/2023) 1 Each 0 Mounjaro 10 MG/0.5ML Subcutaneous Solution Pen-injector (Tirzepatide) Inject 10 mg under the skin once a week. (Patient not taking: Reported on 10/22/2022) 2 mL 3 No current facility-administered medications for this visit. OBJECTIVE: BP 108/60 | Pulse 99 | Temp 36.8 C (98.2 F) (Infrared ) | Resp 18 | Wt 86.1 kg (189 lb 12.8 oz)| SpO2 97% | BMI 33.62 kg/m | BSA 1.96 m Vitals reviewed and is normotensive / afebrile / and not tachycardic General: No acute distress. Neuro: Alert Pleasant & interactive. Respiratory: Good inspiratory effort, no labored breathing. CTAB CV: RRR no M R G HEENT: Conjunctivae appear clear. No swelling noted face or lips. Skin: No rash visible on exposed skin areas, normal coloration & appears dry. Psych: Normal affect. Fluent speech. Jackie Rivera MD [address] [phone] There are no Patient Instructions on file for this visit. documented in this encounter Nursing Notes * Odette Pink LPN - 02/15/2023 10:46 AM EST Chief Complaint Patient presents with Acute Fever with sweats and chills Sorethroat with difficulty swollowing and talking Head and body aches Painful coughing fits with yellowish/redish discharge Unable to eat Sneezing documented in this encounter Plan of Treatment Upcoming Encounters Date Type Department Care Team (Late st Contact Info) Description 02/16/2023 6:10 PM EST Pharmacy Pharmacy, [place] [address] [facility] [place] [address] [place] [facility] [address] [facility] [place] [address] 03/19/2023 8:00 AM EST Office Visit Family [facility], [place] [address] [facility] [place] [phone] Jackie Rivera MD [address] [facility] [place] [address] Pending Results Name Type Priority Associated Diagnoses Date /Time RESPIRATORY PATHOGEN PANEL, PCR Lab Routine Sore throat Fever, unspecified fever cause Malaise and fatigue 02/15/2023 11:06 AM EST GROUP A STREP PCR Lab Routine Sore throat Fever, unspecified fever cause 02/15/2023 11:07 AM EST Scheduled Orders Name Type Priority Associated Diagnoses Orde r Schedule RESPIRATORY PATHOGEN PANEL, PCR Lab Routine Sore throat Fever, unspecified fever cause Malaise and fatigue Expected: 02/15/2023 (Approximate), Expires: 02/15/2024 Health Maintenance Due Date Last Done Comments [...] Not on filedocumented as of this encounter Procedures Procedure Name Priority Date/Time Associated Diagnosis Comments STREP A SCREEN, POINT OF CARE (ENTER/EDIT) Routine 02/15/2023 Fever, unspecified fever cause documented in this encounter Results * STREP A SCREEN, POINT OF CARE (ENTER/EDIT) (02/15/2023) Strep A Result Negative Negative Procedural Control Valid? Yes Lot Number [id number] Expiration Date 09/23/2023 Swab Throat swab / Unknown 02/15/2023 Jackie Rivera MD LAB POINT OF CARE TEST ENTER/EDIT ORDERABLES documented in this encounter Visit Diagnoses Diagnosis Fever, unspecified fever cause- Primary Sore throat Acute pharyngitis Malaise and fatigue Other malaise and fatigue documented in this encounter Care Teams Machine Hoop Maker Relationship Specialty Start Date End Date Jackie Rivera MD [address] [place] [address] PCP - General Family Medicine 11/03/21 documented as of this encounter"
--- OUTSIDE RECORDS SUMMARY | 2023-02-17 09:20 | External Medical Summary | Summary of Care ---
Author Name Unknown Organization [facility] Address [address] [place] [address] Phone [phone] Care Team Providers Care Project Geologist Name Role Phone Thong Vogel MD Primary Care Provid er Reason for Visit * Reason Comments eRx-Medication Refill Encounter Details Date Type Department Care Team Description 10/11/2022 Refill [facility] [address] [place] [address] Thong Vogel MD [address] [place] [address] Type 2 diabetes mellitus with hemoglobin A1c goal of less than 7.0% ([facility]) Allergies No known active allergiesdocumented as of this encounter (statuses as of 10/12/2022) Medications Medication Sig Dispensed Refills Start Date End Date Status Accu-Chek Guide Me w/Device Kit Use as directed. Use to test blood sugars 4 times a day Dx: E11.9 may substitute preferred brand 1 Kit 0 07/03/2020 Active Empagliflozin 25 MG Oral Tablet (Jardiance)Indica tions:Type 2 diabetes mellitus with hemoglobin A1c goal of less than 7.0% (HCC) Take 1 Tablet by mouth in the morning. 90 Tablet 3 03/10/2022 Active Accu-Chek Guide In Vitro Strip (Glucose Blood)Indications :Type 2 diabetes mellitus with hemoglobin A1c goal of less than 7.0% (HCC) USE TO TEST BLOOD SUGARS 4 TIMES A DAY DX: E11.9 MAY SUBSTITUTE PREFERRED BRAND 400 Strip 3 03/10/2022 Active Accu-Chek FastClix LancetsIndication s:Type 2 diabetes mellitus with hemoglobin A1c goal of less than 7.0% (HCC) Use to test blood sugars 4 times a day Dx: E11.9 may substitute preferred brand 408 Each 3 03/10/2022 Active metFORMIN HCl 1000 MG Oral Tablet (Glucophage)Indic ations:Type 2 diabetes mellitus with hemoglobin A1c goal of less than 7.0% (HCC) TAKE BY MOUTH 1 TABLET 2 TIMES A DAY WITH MORNING AND EVENING MEALS . 180 Tablet 3 03/10/2022 Active Gemfibrozil 600 MG Oral Tablet (Lopid)Indication s:High triglycerides,Dys lipidemia, goal LDL below 100 Take 1 tab once a day in the morning. 90 Tablet 3 03/10/2022 Active Insulin Glargine Solostar 100 UNIT/ML Subcutaneous Solution Pen-injector Inject 36 Units under the skin in the morning. 45 mL 3 05/06/2022 Active Fluticasone Propionate 50 MCG/ACT Nasal Suspension (Flonase)Indicati ons:Viral URI with cough Administer 2 Sprays into each nostril in the morning. 1 Each 0 05/26/2022 Active BD Pen Needle Short U/F 31G X 8 MM (Insulin Pen Needle)Indication s:Type 2 diabetes mellitus with hemoglobin A1c goal of less than 7.0% (HCC) USE WITH LANTUS AND NOVOLOG TO INJECT 4 TIMES A DAY. DX E11.9 300 Each 2 06/19/2022 Active Mounjaro 10 MG/0.5ML Subcutaneous Solution Pen-injector (Tirzepatide)Camille cations:Type 2 diabetes mellitus with hemoglobin A1c goal of less than 7.0% (HCC) Inject 10 mg under the skin once a week. 2 mL 3 08/30/2022 Active Lisinopril 2.5 MG Oral Tablet (Prinivil)Indicat ions:Microalbumin uria,HTN, goal below 130/80 Take 1 Tablet by mouth daily. 90 Tablet 3 09/11/2022 Active Pravastatin Sodium 10 MG Oral Tablet (Pravachol)Indica tions:Dyslipidemi a Take 1 Tablet by mouth daily with dinner. 90 Tablet 3 09/11/2022 Active Sertraline HCl 100 MG Oral Tablet (Zoloft)Indicatio ns:Generalized anxiety disorder,Adjustme nt disorder with depressed mood TAKE 1 TABLET BY MOUTH IN THE MORNING AND BEFORE BEDTIME 60 Tablet 5 09/17/2022 Active Mounjaro 7.5 MG/0.5ML Subcutaneous Solution Pen-injector (Tirzepatide)Camille cations:Type 2 diabetes mellitus without complication, with long-term current use of insulin (HCC) Inject 7.5 mg under the skin once a week. Dose decrease until 10 mg syringes available. 2 mL 3 09/17/2022 4 Active NovoLOG FlexPen 100 UNIT/ML Subcutaneous Solution Pen-injector (insulin aspart)Indication s:Type 2 diabetes mellitus with hemoglobin A1c goal of less than 7.0% (HCC) INJECT 30 UNITS BEFORE BREAKFAST, 36 UNITS BEFORE LUNCH, AND 30 UNITS BEFORE SUPPER 30 mL 5 10/12/2022 Active NovoLOG FlexPen 100 UNIT/ML Subcutaneous Solution Pen-injector (insulin aspart)Indication s:Type 2 diabetes mellitus with hemoglobin A1c goal of less than 7.0% (HCC) INJECT 30 UNITS BEFORE BREAKFAST, 36 UNITS BEFORE LUNCH, 30 UNITS BEFORE SUPPER Strength: 100 UNIT/ML 30 mL 3 03/10/2022 3 Discontinued documented as of this encounter (statuses as of 10/12/2022) Active Problems Problem Noted Date Dyslipidemia 09/11/2022 Microalbuminuria 03/10/2022 Food insecurity 01/19/2022 Overview: Per [facility] Protocol Family history of Troy's disease 11/14 Severe obesity with body mas s index (BMI) of 35.0 to 39.9 with serious comorbidity 11/04/2021 Obesity, Class II, BMI 35-39.9, isolated (see actual BMI) 05/20/2020 Hypertension 10/26/2011 Overview: Per HTN Protocol #27. DYSLIPIDEMIA, GOAL LDL BELOW 100 009 Overview: Per Lipid Taxonomy. Type 2 diabetes mellitus 01/03/2009 Overview: Per Diabetes Taxonomy. ICD-10 update of inactive term High triglycerides 11/04/2008 Anxiety Overview: sees Psychiatry Depression Overview: sees Psychiatry [place] documented as of this encounter (statuses as of 10/12/2022) Resolved Problems Problem Noted Date Resolved Date Affective psychosis, bipolar 11/05/201609/2022 Obesity, morbid (more than 1 00 lbs over ideal weight or BMI > 40) 08/20/2009 06/10/2017 Overview: Per Obesity Protocol, #19 ICD-10 update of inactive term Major depressive disorder 2016 Overview: sees Psychiatry ICD-10 update of inactive term documented as of this encounter (statuses as of 10/12/2022) Immunizations Name Administration Dates Next Due HPV Vaccine, 4-Valent 02/04/2010,07/25/2009,06/2009 Hepatitis B, 20+ yrs 04/30/2020,12/29/2019,10/10 Pneumococcal Polysaccharide PPV23 (Pneumovax) 04/11/2009 Seasonal Influenza, QUAD, wi th Preserv, 6 mons & Above, 0.5 mL, IM 02/05/2017 Seasonal Influenza, Quadriva lent, No Preserve, IM 01/01/2021,11/14/2018,12/10/2014 Seasonal Influenza, Recombin ant, RIV4, No Preserve 12/25/2019 Seasonal Influenza, Split, I IV3, With Preserve, Inj 12/07/2013,12/06/2013,01/06/2013,01/12,12/11/2010,02/04/2010 TD, Preservative Free 10/11/2019,08/06/2001 TDAP (age 11 and older)(Adacel) 04/11/2009 documented as of this encounter Social History Tobacco Use Types Packs/Day Years Used Date Smoking Tobacco: Never Smokeless Tobacco: Never Alcohol Use Standard Drinks/Week Comments No 0 (1 standard drink = 0.6 oz pur e alcohol) Food Insecurity Answer Date Recorded Within the past 12 months, y ou worried that your food would run out before you got money to buy more. Sometimes true 2021 Within the past 12 months, t he food you bought just didn't last and you didn't have money to get more. Sometimes true Sex Assigned at Date Recorded Female 12/31/2021 7:26 AM E [employer] Job Start Date Occupation Industry Not on file Not on file Not on file documented as of this encounter Miscellaneous Notes * Telephone Encounter - Kenan Maguire irene - 10/12/2022 12:08 PM EDTSigned Prescriptions: Disp Refills NovoLOG FlexPen 100 UNIT/ML Subcutaneous S*30 mL 5 Sig: INJECT 30 UNITS BEFORE BREAKFAST, 36 UNITS BEFORE LUNCH, AND 30 UNITS BEFORE SUPPERAuthorizing Provider: THONG VOGEL User: KENAN MAGUIRE documented in this encounter Plan of Treatment Upcoming Encounters Date Type Specialty Care Team Description 12/08/2022 Office Visit Pharmacy [facility] [address] [place] [facility] [place] [id number] 12/08/2022 Nurse Only [facility] [address] [facility] [place] [id number] 12/08/2022 Office Visit [facility] [address] [facility] [address] 03/19/2023 [facility] [address] [facility] [phone] Health Maintenance Due Date Last Done Comments COVID-19 Vaccine (#1) 1985 Hepatitis C Screening 06/27/2003 Pneumococcal Vaccine: Pediatrics (0 to 5 Years) and At-Risk Patients (6 to 64 Years) (2 - PCV) 04/11/2010 04/11/2009 HPV/Co-Test 06/27/2015 Cervical Cancer Screening 12/21/2021 Pap Smear 12/21/2021 12/21/2018 DIABETES-EYE EXAM 06/12/2022 06/12/2021, , 04/11/2009 DIABETES-FOOT EXAM 11/04/2022 11/04/2021, 0 08/08/2020, 10/11/2019, Additional history exists Depression Screening, Annual for Pts 12 and Over 11/04/2022 11/04/2021 Influenza Vaccine (FLU shot) (#1) 2022 01/01/2021, [...] Visit Diagnoses Diagnosis Type 2 diabetes mellitus with hemoglobin A1c goal of less than 7.0% (HCC) documented in this encounter Care Teams Project Geologist Relationship Specialty Start Date End Date Thong Vogel MD [address] [place] [id number] PCP - General Family Medicine 11/03/21 documented as of this encounter
--- OUTSIDE RECORDS SUMMARY | 2023-02-17 09:20 | External Medical Summary | Summary of Care ---
Author Name Unknown Organization [facility] Address [address] [place] [address] Phone [phone] Care Team Providers Care Scale Model Maker Name Role Phone Jackie Rivera MD Primary Care Provid er Reason for Visit * Reason Comments Dosage Adjustment In Person (Anticoag Cl inic) Diabetes Follow-Up Encounter Details Date Type Department Care Team Description 10/06/2022 Office Visit Pharmacy, [place] [address] [place] [address] [facility] [address] [place] [address] Type 2 diabetes mellitus without complication, with long-term current use of insulin ([facility])* Allergies No known active allergiesdocumented as of this encounter (statuses as of 10/06/2022) Medications Medication Sig Dispensed Refills Start Date [...] the morning. 90 Tablet 3 03/10/2022 Active NovoLOG FlexPen 100 UNIT/ML Subcutaneous Solution Pen-injector (insulin aspart)Indications: Type 2 diabetes mellitus with hemoglobin A1c goal of less than 7.0% (HCC) INJECT 30 UNITS BEFORE BREAKFAST, 36 UNITS BEFORE LUNCH, 30 UNITS BEFORE SUPPER Strength: 100 UNIT/ML 30 mL 3 03/10/2022 Active Insulin Glargine Solostar 100 [...] 08/30/2022 Active Lisinopril 2.5 MG Oral Tablet (Prinivil)Indicatio ns:Microalbuminuria [...] mg syringes available. 2 mL 3 09/17/2022 09/17/2023 Active documented as of this encounter (statuses as of 10/06/2022) Active Problems Problem Noted Date Dyslipidemia 09/11/2022 [...] as of this encounter (statuses as of 10/06/2022) Resolved Problems Problem Noted Date Resolved Date Affective psychosis, bipolar 11/05/201609/2022 Obesity, morbid (more than 1 00 lbs over ideal weight or BMI > 40) 08/20/2009 06/10/2017 Overview: Per Obesity Protocol, #19 ICD-10 update of inactive term Major depressive disorder 2016 Overview: sees Psychiatry ICD-10 update of inactive term documented as of this encounter (statuses as of 10/06/2022) Immunizations Name Administration Dates Next Due HPV [...] as of this encounter Progress Notes * Sana Hummel, [facility] - 10/06/2022 8:05 AM EDT Medication Therapy [facility] - Diabetes Management Progress Note Kit Littlejohn, identified by name and date of , is a 37 year old female being seen for diabetes management/education. Patient presents for return diabetic visit. DIABETES: Current diabetic medications: Metformin 1000mg twice a day Jardiance 25mg once daily Mounjaro 7.5 mgonce weekly- unable to get 10 mg as of 09/17/22 Semglee (insulin glargine)36unitsat bedtime Novolog 30 units before breakfast, 36units before lunch, 30 units before supper eGFR >90 as of 05/05/2022 Medication Injection Site: Abdomen Lifestyle: Diet: unchanged and eating 2 meals per day; but does seem that patient is still indulging in candy Glucose Review/SMBG: unable to download Dexcom today Hypoglycemia: Does your blood sugar go below 70 mg/dL? occasional Hyperglycemia symptoms present: None reported Recent Labs Units 09/07/22 0911 05/05/22 0901 11/04/21 1119 HEMOGLOBIN A1C - [facility] % 7.3* 9.0* 8.8* Recent Labs Units 05/05/22 0901 11/04/21 1119 05/20/21 1227 ESTIMATED GLOMERULAR FILTRATION RATE - [facility] mL/min >90 >90 >90 CREATININE - [facility] mg/dL 0.6 0.5 0.6 HYPERTENSION: Patient on ACEi/ARB: yes BP Readings from Last 3 Encounters: 09/11/22 102/68 05/26/22 122/70 03/10/22 142/84 Blood pressure at goal: yes HYPERLIPIDEMIA: Patient is taking moderate or high intensity statin: yes HEALTH MAINTENANCE REVIEW: Health Maintenance Due Topic Date Due COVID-19 Vaccine (1) Never done Hepatitis C Screening Never done Pneumococcal Vaccine: Pediatrics (0 to 5 Years) and At-Risk Patients (6 to 64 Years) (2 - PCV) 04/11/2010 Cervical Cancer Screening 12/21/2021 DIABETES-EYE EXAM 06/12/2022 DIABETES-FOOT EXAM 11/04/2022 Depression Screening, Annual for Pts 12 and Over 11/04/2022 ASSESSMENT & PLAN: ICD-10-CM 1. 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 A1c shows great improvement. Unable to download dexcom today due to pending software update. Occasional lows overnight per patient Medications - Reviewed current regimen, patient is not adherent to regimen. Notes to take 15 units of mealtime insulin and often after she eats. Reviewed importance of taking at least before she eatsto help with rise that occurs with meals. Will decrease basal insulin slightly to help with overnight lows. Mounjaro dose to remain the same at this time- patient notes anxiety that she will not be able to tolerate higher doses. Reminded her that she has tolerated it well so far, and that her A1c is fantastic. Will look to discuss in future. Would be ideal to discontinue need for novolog. Diet, Exercise, Lifestyle - notes to only be eating about 2 meals a day. Patient is agreeable to SMBG with Dexcom G6 time(s) daily. Patient aware to contact clinic if any hypoglycemia before next visit. MEDICATION CHANGES: Diabetic Medications: Metformin 1000mg twice a day Jardiance 25mg once daily Mounjaro 7.5 mgonce weekly DEC Semglee (insulin glargine)34 unitsat bedtime Novolog 30 units before breakfast, 36units before lunch, 30 units before supper [at least 15 units when eating a meal] eGFR >90 as of 05/05/2022 HEALTH MAINTENANCE INTERVENTIONS: Labs: a1c at next visit Immunizations: due for pneumo Foot Exam: Up to Date Eye Exam: scheduled for december Annual Wellness Visit: N/A FOLLOW UP: Return to clinic in 8 weeks 12/08/2022 Sana Hummel RPh Clinical Pharmacist - Manager [facility] Medication [facility] 10/06/2022, 8:05 AM documented in this encounter Plan of Treatment Upcoming Encounters Date Type Specialty Care Team Description 12/08/2022 Office Visit Pharmacy [facility] [address] [place] [address] [place] [address] 12/08/2022 Nurse Only [facility] [address] [facility] [place] [address] 12/08/2022 Office Visit Family Jackie Bui MD [address] [place] [address] 03/19/2023 Office Visit Family Jackie Bui MD [address] [place] [address] Scheduled Orders Name Type Priority Associated Diagnoses Orde r Schedule HEMOGLOBIN A1C Lab Routine Type 2 diabetes mellitus without complication, with long-term current use of insulin (HCC) Expected: 12/08/2022 (Approximate), Expires: 10/07/2023 Health Maintenance Due Date Last Done Comments [...] insulin (HCC)- Primary documented in this encounter Care Teams Scale Model Maker Relationship Specialty Start Date End Date Jackie Rivera MD [address] [place] [address] PCP - General Family Medicine 11/03/21 documented as of this encounter
--- OUTSIDE RECORDS SUMMARY | 2023-02-17 09:20 | External Medical Summary | Summary of Care ---
Author Name Unknown Organization [facility] Address [address] [place] [address] Phone [phone] Care Team Providers Care Wooden Frame Builder Name Role Phone Thong Vogel MD Primary Care Provid er Reason for Visit * Reason Comments eRx-Medication Refill Encounter Details Date Type Department Care Team Description 09/14/2022 Refill [facility] [address] [place] [address] Thong Vogel MD [address] [place] [address] Generalized anxiety disorder; Adjustment disorder with depressed mood Allergies No known active allergiesdocumented as of this encounter (statuses as of 09/17/2022) Medications Medication Sig Dispensed Refills Start Date [...] A1c goal of less than 7.0% ([facility]) TAKE BY MOUTH 1 TABLET 2 TIMES [...] A1c goal of less than 7.0% ([facility]) INJECT 30 UNITS BEFORE BREAKFAST, 36 UNITS [...] A1c goal of less than 7.0% ([facility]) USE WITH LANTUS AND NOVOLOG TO INJECT 4 TIMES A DAY. DX E11.9 300 Each 2 06/19/2022 Active Mounjaro 10 MG/0.5ML Subcutaneous Solution Pen-injector (Tirzepatide)Camille cations:Type 2 diabetes mellitus with hemoglobin A1c goal of less than 7.0% ([facility]) Inject 10 mg under the skin once [...] BEFORE BEDTIME 60 Tablet 5 09/17/2022 Active Sertraline HCl 100 MG Oral Tablet (Zoloft) 0 09/10/2022 Discontinued documented as of this encounter (statuses as of 09/17/2022) Active Problems Problem Noted Date Dyslipidemia 09/11/2022 [...] as of this encounter (statuses as of 09/17/2022) Resolved Problems Problem Noted Date Resolved Date Affective psychosis, bipolar 11/05/201609/2022 Obesity, morbid (more than 1 00 lbs over ideal weight or BMI > 40) 08/20/2009 06/10/2017 Overview: Per Obesity Protocol, #19 ICD-10 update of inactive term Major depressive disorder 2016 Overview: sees Psychiatry ICD-10 update of inactive term documented as of this encounter (statuses as of 09/17/2022) Immunizations Name Administration Dates Next Due HPV Vaccine, 4-Valent 02/04/2010,07/25/2009,0206/2009 Hepatitis B, 20+ yrs 04/30/2020,12/29/2019,10/10 Pneumococcal Polysaccharide [...] encounter Miscellaneous Notes * Telephone Encounter - Emily Sykes, [facility] - 09/17/2022 6:13 AM EDTSigned Prescriptions: Disp Refills Sertraline HCl 100 MG Oral Tablet (Zoloft) 60 Tab*5 Sig: TAKE 1 TABLET BY MOUTH IN THE MORNING AND BEFORE BEDTIMEAuthorizing Provider: THONG VOGELOrdering User: EMILY SYKES documented in this encounter Plan of Treatment Upcoming Encounters Date Type Specialty Care Team Description 10/06/[address] [facility] [address] [place] [facility] [place] [address] 12/08/2022 Nurse Only [facility] [place], Nurse [address] [place] [facility] [place] [address] 12/08/2022 Office Visit Family Medicine Thong Vogel MD [address] [place] [facility] [place] [address] 03/19/2023 Office Visit Family Medicine Thong Vogel MD [address] [place] [facility] [place] [address] Health Maintenance Due Date Last Done Comments COVID-19 Vaccine (#1) 1985 Hepatitis C Screening 06/27/2003 Pneumococcal Vaccine: Pediatrics (0 to 5 Years) and At-Risk Patients (6 to 64 Years) (2 - PCV) 04/11/2010 04/11/2009 DIABETES-EYE EXAM 06/12/2022 06/12/2021, , 04/11/2009 DIABETES-FOOT [...] 09/08/2023 09/07/2022, 05/06, 04/30/2020, Additional history exists Pap Smear 12/22/2023 12/21/2018 DTaP,Tdap,and Td Vaccines (4 - Td or Tdap) 10/10/2029 10/11/2019, 04/11/2009, 08/06/2001 GARDASIL-HPV IMMUNIZATION SERIES Completed 02/04/2010, 07/25/2009, 04/11/2009 Hepatitis B Completed 04/30/2020, 12/07, 10/11/2019 MENINGOCOCCAL (MENACTRA/MENVEO) Aged Out No longer eligible based on patient's age to complete this topic documented as of this encounter Medical Devices Not on filedocumented as of this encounter Visit Diagnoses Diagnosis Generalized anxiety disorder Adjustment disorder with depressed mood documented in this encounter Care Teams Wooden Frame Builder Relationship Specialty Start Date End Date Thong Vogel MD [address], [place] [phone] PCP - General Family Medicine 11/03/21 documented as of this encounter
--- OUTSIDE RECORDS SUMMARY | 2023-02-17 09:20 | External Medical Summary | Summary of Care ---
Author Name Unknown Organization [facility] Address [address] [place] [address] Phone [phone] Care Team Providers Care Applications Project Manager Name Role Phone Thong Vogel MD Primary Care Provid er Reason for Visit * Reason Onset Date Comments Medication Refill 01/18/2023 Encounter Details Date Type Department Care Team (Late st Contact Info) Description 01/18/2023 Refill Pharmacy, [place] [address] [place] [address] Thong Vogel MD [address] [place] [address] Type 2 diabetes mellitus without complication, with long-term current use of insulin ([facility]) Allergies No known active allergiesdocumented as of this encounter (statuses as of 01/19/2023) Medications Medication Sig Dispensed Refills Start Date End Date Status Accu-Chek Guide Me w/Device Kit Use as directed. Use to test blood sugars 4 times a day Dx: E11.9 may substitute preferred brand 1 Kit 0 07/03/2020 Active Empagliflozin 25 MG Oral Tablet (Jardiance)Indicat ions:Type 2 diabetes mellitus with hemoglobin A1c goal of less than 7.0% (HCC) Take 1 Tablet by mouth in the morning. 90 Tablet 3 03/10/2022 Active Accu-Chek Guide In Vitro Strip (Glucose Blood)Indications: Type 2 diabetes mellitus with hemoglobin A1c goal of less than 7.0% (HCC) USE TO TEST BLOOD SUGARS 4 TIMES A DAY DX: E11.9 MAY SUBSTITUTE PREFERRED BRAND 400 Strip 3 03/10/2022 Active Accu-Chek FastClix LancetsIndications :Type 2 diabetes mellitus with hemoglobin A1c goal of less than 7.0% (HCC) Use to test blood sugars 4 times a day Dx: E11.9 may substitute preferred brand 408 Each 3 03/10/2022 Active metFORMIN HCl 1000 MG Oral Tablet (Glucophage)Indica tions:Type 2 diabetes mellitus with hemoglobin A1c goal of less than 7.0% (HCC) TAKE BY MOUTH 1 TABLET 2 TIMES A DAY WITH MORNING AND EVENING MEALS . 180 Tablet 3 03/10/2022 Active Gemfibrozil 600 MG Oral Tablet (Lopid)Indications :High triglycerides,Dysl ipidemia, goal LDL below 100 Take 1 tab once a day in the morning. 90 Tablet 3 03/10/2022 Active Insulin Glargine Solostar 100 UNIT/ML Subcutaneous Solution Pen-injector Inject 36 Units under the skin in the morning. 45 mL 3 05/06/2022 Active Fluticasone Propionate 50 MCG/ACT Nasal Suspension (Flonase)Indicatio ns:Viral URI with cough Administer 2 Sprays into each nostril in the morning. 1 Each 0 05/26/2022 Active BD Pen Needle Short U/F 31G X 8 MM (Insulin Pen Needle)Indications :Type 2 diabetes mellitus with hemoglobin A1c goal of less than 7.0% (HCC) USE WITH LANTUS AND NOVOLOG TO INJECT 4 TIMES A DAY. DX E11.9 300 Each 2 06/19/2022 Active Mounjaro 10 MG/0.5ML Subcutaneous Solution Pen-injector (Tirzepatide)Indic ations:Type 2 diabetes mellitus with hemoglobin A1c goal of less than 7.0% (HCC) Inject 10 mg under the skin once a week. 2 mL 3 08/30/2022 Active Additional Information Patient not taking.Reported on 10/22/2022 Lisinopril 2.5 MG Oral Tablet (Prinivil)Indicati ons:Microalbuminur ia,HTN, goal below 130/80 Take 1 Tablet by mouth daily. 90 Tablet 3 09/11/2022 Active Pravastatin Sodium 10 MG Oral Tablet (Pravachol)Indicat ions:Dyslipidemia Take 1 Tablet by mouth daily with dinner. 90 Tablet 3 09/11/2022 Active Sertraline HCl 100 MG Oral Tablet (Zoloft)Indication s:Generalized anxiety disorder,Adjustmen t disorder with depressed mood TAKE 1 TABLET BY MOUTH IN THE MORNING AND BEFORE BEDTIME 60 Tablet 5 09/17/2022 Active NovoLOG FlexPen 100 UNIT/ML Subcutaneous Solution Pen-injector (insulin aspart)Indications :Type 2 diabetes mellitus with hemoglobin A1c goal of less than 7.0% (HCC) INJECT 30 UNITS BEFORE BREAKFAST, 36 UNITS BEFORE LUNCH, AND 30 UNITS BEFORE SUPPER 30 mL 5 10/12/2022 Active Mounjaro 7.5 MG/0.5ML Subcutaneous Solution Pen-injector (Tirzepatide)Indic ations:Type 2 diabetes mellitus without complication, with long-term current use of insulin (HCC) Inject 7.5 mg under the skin once a week. 2 mL 3 01/19/2023 Active Mounjaro 7.5 MG/0.5ML Subcutaneous Solution Pen-injector (Tirzepatide)Indic ations:Type 2 diabetes mellitus without complication, with long-term current use of insulin (HCC) Inject 7.5 mg under the skin once a week. Dose decrease until 10 mg syringes available. 2 mL 3 09/17/2022 Discontinue d(Refill) documented as of this encounter (statuses as of 01/19/2023) Active Problems Problem Noted Date Diagnosed Date [...] as of this encounter (statuses as of 01/19/2023) Resolved Problems Problem Noted Date Diagnosed Date Resolved Date Affective psychosis, bipolar 11/05/2016 09/11/2022 Obesity, morbid (more than 1 00 lbs over ideal weight or BMI > 40) 08/20/2009 06/10/2017 Overview: Per Obesity Protocol, #19 ICD-10 update of inactive term Major depressive disorder Overview: sees Psychiatry ICD-10 update of inactive term documented as of this encounter (statuses as of 01/19/2023) Immunizations Name Administration Dates Next Due HPV [...] encounter Miscellaneous Notes * Telephone Encounter - Sana Hummel RP - 01/19/2023 8:15 AM EST Signed Prescriptions: Disp Refills Mounjaro 7.5 MG/0.5ML Subcutaneous Solutio*2 mL 3 Sig: Inject 7.5 mg under the skin once a week.Authorizing Provider: THONG VOGEL User: SANA HUMMEL documented in this encounter Plan of Treatment Upcoming Encounters Date Type Department Care Team (Late st Contact Info) Description 03/19/2023 8:00 AM EST Office Visit [facility] [address] [place] [address] Thong Vogel MD [address] [place] [address] Health Maintenance Due Date Last Done [...] with long-term current use of insulin (HCC) documented in this encounter Care Teams Applications Project Manager Relationship Specialty Start Date End Date Thong Vogel MD [address] [place] [address] PCP - General Family Medicine 11/03/21 documented as of this encounter
--- OUTSIDE RECORDS SUMMARY | 2023-02-17 09:20 | External Medical Summary ---
Author Name Unknown Address Unknown Organization K01:[facility] - [address] [facility] [address] Laboratory Report Ordering Provider Test Date Status FRANCOIS GRAF 10/22/2022 15:52:14 Final <10,000 colonies/ml mixed no rmal zoila Observation Date Value Abnormality Reference (Units ) Status Bacteria identified in Specimen by Culture 10/22/2022 15:52:14 [id number]^ESCHE RICHIA COLI Abnormal Final >100,000 colonies/mL Escheri arsenio coli Performing Location [facility] - [address] [facility] [address] Ordering Provider Test Date Status FRANCOIS GRAF 10/22/2022 15:52:14 Final Observation Date Value Abnormality Reference (Units ) Status Ampicillin 10/22/2022 15:52:14 4 Susceptible Final Cefazolin 10/22/2022 15:52:14 <=4 Susceptible Final Cefepime susceptibility 10/22/2022 15:52:14 <=1 Susceptible Final Ceftriaxone suceptibility 10/22/2022 15:52:14 <=1 Susceptible Final Ciprofloxacin 10/22/2022 15:52:14 <=0.25 Susceptible Final Due to serious side effects, the FDA has advised against using Ciprofloxacin to treat uncomplicated UTIs and respiratory tract infections unless there are no alternative treatment options. Gentamicin susceptibility 10/22/2022 15:52:14 <=1 Susc eptible Final Nitrofurantoin susceptibility 10/22/2022 15:52:14 <=16 Susceptible Final Piperacillin + Tazobactamsusceptibility 10/22/2022 15:52:14 <=4 Susceptible Final TMP-SMZ susceptibility 10/22/2022 15:52:14 <=20 Suscept ible Final Test: Culture, Urine, Quanti tative
Specimen Source: Urine, Clean Catch
Specimen Type: Urine
Specimen Date: 10/22/2022 3:52 PM
Result Date: 10/24/2022 4:36 PM
Result Status: Final result
Abnormal: Yes
Resulting Lab: [facility]
[address]
[facility] [address]

CULTURE

>100,000 colonies/mL Escherichia coli (Abnormal)

<10,000 colonies/ml mixed normal zoila

SUSCEPTIBILITY

Escherichia coli
METHOD MICROBROTH DILUTIONS

AMPICILLIN 4 Susceptible
CEFAZOLIN <=4 Susceptible
CEFEPIME <=1 Susceptible
CEFTRIAXONE <=1 Susceptible
CIPROFLOXACIN <=0.25 Susceptible [1]
GENTAMICIN <=1 Susceptible
NITROFURANTOIN <=16 Susceptible
PIPERACILLIN TAZOBACTAM <=4 Susceptible
TRIMETH/SULFAMETHOXAZOLE <=20 Susceptible

[1] Due to serious side effects, the FDA has advised against using
Ciprofloxacin to treat uncomplicated UTIs and respiratory tract infections
unless there are no alternative treatment options.

null Performing Location [facility] - [address] [facility] [address]
--- OUTSIDE RECORDS SUMMARY | 2023-02-17 09:20 | External Medical Summary | Summary of Care ---
Author Name Unknown Organization [facility] Address [address] [place] [address] Phone [phone] Care Team Providers Care Mortar Maker Name Role Phone Jackie Rivera MD Primary Care Provid er Reason for Visit * Reason Onset Date Comments Fax 02/01/2023 Encounter Details Date Type Department Care Team (Late st Contact Info) Description 02/01/2023 Telephone [facility] [address] [place] [address] Jackie Rivera MD [address] [place] [address] Fax Allergies No known active allergiesdocumented as of this encounter (statuses as of 02/03/2023) Medications Medication Sig Dispensed Refills Start Date End Date Status Accu-Chek Guide Me w/Device Kit Use as directed. Use to test blood sugars 4 times a day Dx: E11.9 may substitute preferred brand 1 Kit 0 07/03/2020 Active Empagliflozin 25 MG Oral Tablet (Jardiance)Indicati ons:Type 2 diabetes mellitus with hemoglobin A1c goal of less than 7.0% ([facility]) Take 1 Tablet by mouth [...] complication, with long-term current use of insulin ([facility]) Inject 7.5 mg under the skin once a week. 2 mL 3 01/19/2023 Active documented as of this encounter (statuses as of 02/03/2023) Active Problems Problem Noted Date Diagnosed Date [...] as of this encounter (statuses as of 02/03/2023) Resolved Problems Problem Noted Date Diagnosed Date Resolved Date Affective psychosis, bipolar 11/05/2016 09/11/2022 Obesity, morbid (more than 1 00 lbs over ideal weight or BMI > 40) 08/20/2009 06/10/2017 Overview: Per Obesity Protocol, #19 ICD-10 update of inactive term Major depressive disorder Overview: sees Psychiatry ICD-10 update of inactive term documented as of this encounter (statuses as of 02/03/2023) Immunizations Name Administration Dates Next Due HPV [...] encounter Miscellaneous Notes * Telephone Encounter - Odette Pink LPN - 02/03/2023 1:55 PM EST Called [facility] and requested they refax order to us. They will fax. * Telephone Encounter - Hunter Lopez RPh - 02/02/2023 2:34 PM EST No forms have been received by [facility] [place] as of 02/02/2023 at 2:53 PM . Hunter Wilson RPh, CACP, CDE Clinical Pharmacist [facility] 02/02/2023, 2:53 PM * Telephone Encounter - Maricruz Monahan OSA - 02/01/2023 2:31 PM EST [facility] faxed an order for decom supplies 01/26/23. They are asking that it be signed and faxedback. documented in this encounter Plan of Treatment Upcoming Encounters Date Type Department Care Team (Late st Contact Info) Description 02/16/2023 6:10 PM EST Pharmacy Pharmacy, [place] [address] [place] [address] [facility] [address] [place] [address] 03/19/2023 8:00 AM EST Office Visit [facility] [address] [place] [id number] Jackie Rivera MD [address] [place] [address] Health Maintenance Due Date Last Done Comments [...] filedocumented as of this encounter Care Teams Mortar Maker Relationship Specialty Start Date End Date Jackie Rivera MD [address] [place] [address] PCP - General Family Medicine 11/03/21 documented as of this encounter
--- OUTSIDE RECORDS SUMMARY | 2023-02-17 09:20 | External Medical Summary | Summary of Care ---
Author Name Unknown Organization [facility] Address [address] [place] [address] Phone [phone] Care Team Providers Care Design Agent Name Role Phone Jackie Rivera MD Primary Care Provid er Reason for Visit * Reason Onset Date Comments Health Maintenance 11/18/2022 Encounter Details Date Type Department Care Team Description 11/18/2022 Telephone [facility] [address] [place] [address] Jackie Rivera MD [address] [place] [address] Health Maintenance Allergies No known active allergiesdocumented as of this encounter (statuses as of 11/18/2022) Medications Medication Sig Dispensed Refills Start Date [...] available. 2 mL 3 09/17/2022 09/17/2023 Active NovoLOG FlexPen 100 UNIT/ML Subcutaneous Solution Pen-injector (insulin aspart)Indications: Type 2 diabetes mellitus with hemoglobin A1c goal of less than 7.0% (HCC) INJECT 30 UNITS BEFORE BREAKFAST, 36 UNITS BEFORE LUNCH, AND 30 UNITS BEFORE SUPPER 30 mL 5 10/12/2022 Active documented as of this encounter (statuses as of 11/18/2022) Active Problems Problem Noted Date Dyslipidemia 09/11/2022 [...] as of this encounter (statuses as of 11/18/2022) Resolved Problems Problem Noted Date Resolved Date Affective psychosis, bipolar 11/05/201609/2022 Obesity, morbid (more than 1 00 lbs over ideal weight or BMI > 40) 08/20/2009 06/10/2017 Overview: Per Obesity Protocol, #19 ICD-10 update of inactive term Major depressive disorder 2016 Overview: sees Psychiatry ICD-10 update of inactive term documented as of this encounter (statuses as of 11/18/2022) Immunizations Name Administration Dates Next Due HPV [...] encounter Miscellaneous Notes * Telephone Encounter - Carlee Mike LPN - 11/18/2022 10:02 AM EDT Care Gaps Comprehensive Care Outreach Last Office/Telemedicine Visit: 09/11/2022 (in office), 09/11/2019 (telemedicine) Next Office Visit: 12/22/2022 Hemoglobin AIC Results: Lab Results Component Value Date/Time HEMOGLOBIN A1C - [facility] 7.3 (H) 09/07/2022 09:11 AM HEMOGLOBIN A1C - [facility] 9.0 (H) 05/05/2022 09:01 AM HEMOGLOBIN A1C - [facility] 8.8 (H) 11/04/2021 11:19 AM HEMOGLOBIN A1C - [facility] 11.0 (H) 09/25/2019 08:56 AM HEMOGLOBIN A1C - [facility] 9.6 (H) 01/06/2019 12:25 PM HEMOGLOBIN A1C - [facility] 10.4 (H) 05/10/2018 03:53 PM Reviewed Health Maintenance below: Health Maintenance Topic Date Due COVID-19 Vaccine (1) Never done Hepatitis C Screening Never done Pneumococcal Vaccine: Pediatrics (0 to 5 Years) and At-Risk Patients (6 to 64 Years) (2 - PCV) 04/11/2010 Cervical Cancer Screening 12/21/2021 DIABETES-EYE EXAM 06/12/2022 Diabetic Foot Exam 11/04/2022 Depression Screening 11/04/2022 Influenza Vaccine (FLU shot) (1) 11/06/2022 Pap my g Eye already scheduled Foot Care Gap Outreach Action Taken: Myportal message sent documented in this encounter Plan of Treatment Upcoming Encounters Date Type Specialty Care Team Description 12/08/2022 Office Visit Pharmacy [facility] [address] [place] [address] [place] [address] 12/08/2022 Nurse Only [facility] [address] [address] 12/22/2022 Office Visit Family Medicine Jackie Rivera MD [address] [place] [address] [place] [address] 03/19/2023 Office Visit Family Medicine Jackie Rivera MD [address] [place] [facility] [place] [address] Health Maintenance Due Date Last Done Comments COVID-19 Vaccine (#1) 1985 Hepatitis C Screening 06/27/2003 Pneumococcal Vaccine: Pediatrics (0 to 5 Years) and At-Risk Patients (6 to 64 Years) (2 - PCV) 04/11/2010 04/11/2009 HPV/Co-Test 06/27/2015 Cervical Cancer Screening 12/21/2021 Pap Smear 12/21/2021 12/21/2018 DIABETES-EYE EXAM 06/12/2022 06/12/2021, , 04/11/2009 Depression Screening 11/04/2022 11/04/2021 Diabetic Foot Exam [...] filedocumented as of this encounter Care Teams Design Agent Relationship Specialty Start Date End Date Jackie Rivera MD [address] [place] [phone] PCP - General Family Medicine 11/03/21 documented as of this encounter
--- OUTSIDE RECORDS SUMMARY | 2023-02-17 09:20 | External Medical Summary | Summary of Care ---
Author Name Unknown Organization [facility] Address [address] [facility] [place] [address] Phone [phone] Care Team Providers Care Shirt Hemmer Name Role Phone Jackie Rivera MD Primary Care Provid er Reason for Visit * Reason Onset Date Comments Urinary Tract Infection Symptoms Urinary Tract Infection Symptoms 10/22/2022 Encounter Details Date Type Department Care Team Description 10/22/[address] [facility] [address] [address] González Souza PA-C [address] [place] [address] Acute UTI* Allergies No known active allergiesdocumented as of this encounter (statuses as of 10/22/2022) Medications Medication Sig Dispensed Refills Start Date [...] long-term current use of insulin ([facility]) Inject 7.5 mg under the skin once a week. Dose decrease until 10 mg syringes available. 2 mL 3 09/17/2022 4 Active NovoLOG FlexPen 100 UNIT/ML Subcutaneous Solution Pen-injector (insulin aspart)Indications :Type 2 diabetes mellitus with hemoglobin A1c goal of less than 7.0% ([facility]) INJECT 30 UNITS BEFORE BREAKFAST, 36 UNITS BEFORE LUNCH, AND 30 UNITS BEFORE SUPPER 30 mL 5 10/12/2022 Active Sulfamethoxazole-T rimethoprim 800-160 MG Oral Tablet (Bactrim DS)Indications:Acu te UTI Take 1 Tablet by mouth in the morning and 1 Tablet before bedtime. Do all this for 5 days. Until gone. 10 Tablet 0 10/22/2022 3 Active Sulfamethoxazole-T rimethoprim 800-160 MG Oral Tablet (Bactrim DS)Indications:Acu te UTI Take 1 Tablet by mouth in the morning and 1 Tablet before bedtime. Do all this for 3 days. Until gone. 6 Tablet 0 10/22/2022 3 Discontinue d(Refill) documented as of this encounter (statuses as of 10/22/2022) Active Problems Problem Noted Date Dyslipidemia 09/11/2022 Microalbuminuria 03/10/2022 Food insecurity 01/19/2022 Overview: Per [facility] Protocol Family history of Troy's [...] as of this encounter (statuses as of 10/22/2022) Resolved Problems Problem Noted Date Resolved Date Affective psychosis, bipolar 11/05/201609/2022 Obesity, morbid (more than 1 00 lbs over ideal weight or BMI > 40) 08/20/2009 06/10/2017 Overview: Per Obesity Protocol, #19 ICD-10 update of inactive term Major depressive disorder 2016 Overview: sees Psychiatry ICD-10 update of inactive term documented as of this encounter (statuses as of 10/22/2022) Immunizations Name Administration Dates Next Due HPV [...] Sign Reading Time Taken Comments Blood Pressure 108/68 10/22/2022 3:32 PM EDT Pulse 103 10/22/2022 3:32 PM EDT Temperature 36.6 C (97.9 F) 10/22/2022 3:32 PM ED T Respiratory Rate 16 10/22/2022 3:32 PM EDT Oxygen Saturation 97% 10/22/2022 3:32 PM EDT Inhaled Oxygen Concentration - - Weight 89.2 kg (196 lb 9.6 oz) 10/22/2022 3:32 P M EDT Height - - Body Mass Index 34.83 09/11/2022 7:39 AM EDT documented in this encounter Patient Instructions * Patient Instructions* González Souza PA-C - 10/22/2022 3:48 PM EDT Bactrim twice a day for 5 days. Do not stop early. Drink plenty of fluids and increase fluid intake over next 48-72 hours. Take all medications as prescribed, even if you are feeling better sooner so as to reduce risk of reinfection and to reduce the chance of antibiotic resistance developing. We will notify you of your urine culture results. F/U with PCP with no improvement in 3-5 days. Go immediately to the ED with any change or worsening symptoms including chills, fevers, back pain. documented in this encounter Progress Notes * González Souza PA-C - 10/22/2022 3:55 PM EDT Nursing Notes: Sara Galindo, COMMODITY SUPERVISOR 10/22/22 1534 Signed Kit Littlejohn is a 37 year old female who presents to walk-in clinic today complaining of urinary frequency and urgency since yesterday. Also states some pressure. Pt alone in room. Did try some cranberry juice. CONVENIENT CARE PROGRESS NOTE Kit Littlejohn is a 37 year old female who presents with urinary tract symptoms. Patient was accompanied by Self. HPI: Severity of Symptoms: Moderate Modifying Factors (what was done since onset of Symptoms): cranberry Timing (How often does it occur): constant Quality (Feels Like): dysuria Other associated Signs and Symptoms: frequency, urgency, mild hematuria. Urinary symptoms started yesterday, but she has had temps of 99-100 over the past week. Denies GI symptoms, abn dc or concerns for STIs. 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 Social History Socioeconomic History Marital status: Single Spouse name: Not on file Number of children: Not on file Years of education: Not on file Highest education level: Not on file Occupational History 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: student 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 Tobacco Use Smoking status: Never Smokeless tobacco: Never Vaping Use Vaping Use: Not on file Substance and Sexual Activity Alcohol use: No Drug use: No Sexual activity: Never Other Topics Concern Service Not Asked Blood Transfusions Not Asked Caffeine Concern Not Asked Occupational Exposure Not Asked Hobby Hazards Not Asked Sleep Concern Not Asked Stress Concern Not Asked Weight Concern Not Asked Special Diet Not Asked Back Care Not Asked Exercise Yes Comment: CV/wts 1x/wk Bike Helmet Not Asked Seat Belt Not Asked Self-Exams Not Asked Social History Narrative Not on file Social Determinants of Health Financial Resource Strain: Not on file Food Insecurity: Food Insecurity Present Worried About Running Out of Food in the Last Year: Sometimes true Ran Out of Food in the Last Year: Sometimes true Transportation Needs: Not on file Physical Activity: Not on file Stress: Not on file Social Connections: Not on file Intimate Partner Violence: Not on file Housing Stability: Not on file Current Outpatient Medications Medication Sig Dispense Refill Accu-Chek Guide Me w/Device Kit Use as directed. Use to test blood sugars 4 times a day Dx: E11.9 may substitute preferred brand 1 Kit 0 Empagliflozin 25 MG Oral Tablet (Jardiance) Take 1 Tablet by mouth in the morning. 90 Tablet 3 Accu-Chek Guide In Vitro Strip (Glucose Blood) USE TO TEST BLOOD SUGARS 4 TIMES A DAY DX: E11.9 MAYSUBSTITUTE PREFERRED BRAND 400 Strip 3 Accu-Chek FastClix Lancets Use to test blood sugars 4 times a day Dx: E11.9 may substitute preferred brand 408 Each 3 metFORMIN HCl 1000 MG Oral Tablet [...] skin in the morning. 45 mL 3 Fluticasone Propionate 50 MCG/ACT Nasal Suspension (Flonase) Administer 2 Sprays into each nostril in the morning. 1 Each 0 BD Pen Needle Short U/F 31G X [...] BY MOUTH IN THE MORNING AND BEFORE [id number] Tablet 5 Mounjaro 7.5 MG/0.5ML Subcutaneous Solution Pen-injector (Tirzepatide) Inject 7.5 mg under the skinonce a week. Dose decrease until 10 mg syringes available. 2 mL 3 NovoLOG FlexPen 100 UNIT/ML Subcutaneous Solution Pen-injector (insulin aspart) INJECT 30 UNITS BEFORE BREAKFAST, 36 UNITS BEFORE LUNCH, AND 30 UNITS BEFORE SUPPER 30 mL 5 Sulfamethoxazole-Trimethoprim 800-160 MG Oral Tablet (Bactrim DS) Take 1 Tablet by mouth in the morning and 1 Tablet before bedtime. Do all this for 5 days. Until gone. 10 Tablet 0 Mounjaro 10 MG/0.5ML Subcutaneous Solution Pen-injector (Tirzepatide) Inject 10 mg under the skin once a week. (Patient not taking: Reported on 10/22/2022) 2 mL 3 No current facility-administered medications for this visit. Review of patient's allergies indicates: No Known Allergies Family History Problem Relation Age of Onset Diabetes Grandmother (Maternal) Heart Disorder Grandmother (Maternal) Diabetes Father Diabetes Grandfather (Maternal) Diabetes Grandmother (Paternal) Diabetes Grandfather (Paternal) Heart Disorder Father Cancer Grandmother (Paternal) OBJECTIVE: BP 108/68 | Pulse 103 | Temp 36.6 C (97.9 F) | Resp 16 | Wt 89.2 kg (196 lb 9.6 oz) | SpO2 97% | BMI 34.83 kg/m | BSA 1.99 m Wt Readings from Last 1 Encounters: 10/22/22 89.2 kg (196 lb 9.6 oz) General appearance: awake, alert, no apparent distress Abdominal Exam: back: no CVA tenderness and abd: +suprapubic tenderness to palpation, no R/R/G, +BS Respiratory: clear to auscultation, no rhonchi, no wheezes, and no crackles Heart: regular rate, regular rhythm, no murmurs , no rubs, and no gallops Skin/Integumentary: warm, dry Results for orders placed or performed in visit on 10/22/22 URINALYSIS, POINT OF CARE (ENTER/EDIT) Result Value Ref Range Color, Urine Dark Yellow Yellow or Light Yellow Clarity, Urine Cloudy Clear Glucose, Urine >=1000 Negative mg/dL Bilirubin, Urine Negative Negative Ketone, Urine Trace Negative mg/dL Specific [place], Urine 1.015 1.003 - 1.030 Blood, Urine Large Negative pH, Urine 5.5 5.0 - 7.5 units Protein, Urine 30 Negative mg/dL Urobilinogen, Urine 0.2 0.2 - 1.0 mg/dL Nitrite, Urine Positive Negative Esterase, Urine Small Negative Patient Instructions Bactrim twice a day for 5 days. Do not stop early. Drink plenty of fluids and increase fluid intake over next 48-72 hours. Take all medications as prescribed, even if you are feeling better sooner so as to reduce risk of reinfection and to reduce the chance of antibiotic resistance developing. We will notify you of your urine culture results. F/U with PCP with no improvement in 3-5 days. Go immediately to the ED with any change or worsening symptoms including chills, fevers, back pain. Assessment: Acute UTI (Primary) - URINALYSIS, POINT OF CARE (ENTER/EDIT) - CULTURE, URINE, QUANTITATIVE - Sulfamethoxazole-Trimethoprim 800-160 MG Oral Tablet (Bactrim DS); Take 1 Tablet by mouth in the morning and 1 Tablet before bedtime. Do all this for 5 days. Until gone. History, symptoms, and exam consistent with UTI. Will start meds and follow culture Follow Up: Return for Patient to follow up with Primary Care Provider as directed. | For: Patient to follow up with Primary Care Provider as directed Patient goals for plan of care were discussed González Souza PA-C [address] [place] [address] documented in this encounter Nursing Notes * Sara Galindo LPN - 10/22/2022 3:30 PM EDT Kit Littlejohn is a 37 year old female who presents to walk-in clinic today complaining of urinary frequency and urgency since yesterday. Also states some pressure. Pt alone in room. Did try some cranberry juice. documented in this encounter Plan of Treatment Upcoming Encounters Date Type Specialty Care Team Description 12/08/2022 Office Visit Pharmacy [facility] [address] [place], [place] [address] [address] 12/08/2022 Nurse Only [facility] [address] 12/08/2022 Office Visit Family Medicine Jackie Rivera MD [address] [place] [address] 03/19/2023 Office Visit Family Medicine Jackie Rivera MD [address] [phone] Pending Results Name Type Priority Associated Diagnoses Date /Time CULTURE, URINE, QUANTITATIVE Lab STAT Acute UTI 10/22/2022 3:52 PM EDT Health Maintenance Due Date Last Done Comments [...] Procedure Name Priority Date/Time Associated Diagnosis Comments URINALYSIS, POINT OF CARE (ENTER/EDIT) Routine 10/22/2022 3:30 PM EDT Acute UTI documented in this encounter Results * URINALYSIS, POINT OF CARE (ENTER/EDIT) (10/22/2022 3:30 PM EDT) Color, Urine Dark Yellow Yellow or Light Yellow Clarity, Urine Cloudy Clear Glucose, Urine >=1000 Negative mg/dL Bilirubin, Urine Negative Negative Ketone, Urine Trace Negative mg/dL Specific [place], Urine 1.015 1.003 - 1.030 Blood, Urine Large Negative pH, Urine 5.5 5.0 - 7.5 units Protein, Urine 30 Negative mg/dL Urobilinogen, Urine 0.2 0.2 - 1.0 mg/dL Nitrite, Urine Positive Negative Esterase, Urine Small Negative Urine 10/22/2022 3:30 PM EDT González Souza PA-C LAB POINT O F CARE TEST ENTER/EDIT ORDERABLES documented in this encounter Visit Diagnoses Diagnosis Acute UTI- Primary Urinary tract infection, site not specified documented in this encounter Care Teams Shirt Hemmer Relationship Specialty Start Date End Date Jackie Rivera [facility] [address] [facility] [place] [address] PCP - General Family Medicine 11/03/21 documented as of this encounter"
--- OUTSIDE RECORDS SUMMARY | 2023-02-17 09:21 | External Medical Summary ---
Author Name Unknown Address Unknown Organization [id number]:[facility] - [address] [facility] [place] [address] Laboratory Report Ordering Provider Test Date Status JASPREET BENITO 09/07/2022 09:11:44 Final Observation Date Value Abnormality Reference (Units ) Status Triglyceride 09/07/2022 09:11:44 332 Above high normal <=174 (mg/dL) Final Triglyceride Reference Range s (mg/dL):
<150 Acceptable
150-174 Borderline high
175-499 High
>=500 Very high Cholesterol 09/07/2022 09:11:44 165 <200 (mg /dL) Final Total Cholesterol Reference Ranges (mg/dL):
<200 Desirable
200-239 Borderline high
>=240 High HDL 09/07/2022 09:11:44 36 Below low normal >49 (mg/dL) Final HDL Cholesterol Reference Ra nges (mg/dL):
>=60 High (Desirable)
<50 Low (Undesirable) For Females
<40 Low (Undesirable) For Males NON-HDL CHOLESTEROL 09/07/2022 09:11:44 129 <=159 (mg/dL) Final Non-HDL Cholesterol Referenc e Range (mg/dL):
<100 Target level for high risk ASCVD patient
<130 Optimal for general population
130-159 Near optimal for general population
160-189 Borderline High
190-219 High
>=220 Very High Performing Location [facility] - [address] [place] [address]
--- OUTSIDE RECORDS SUMMARY | 2023-02-17 09:21 | External Medical Summary ---
Author Name Unknown Address Unknown Organization [id number]:[facility] - [address] [facility] [address] Laboratory Report Ordering Provider Test Date Status JASPREET BENITO 09/07/2022 09:11:09 Final Observation Date Value Abnormality Reference (Units ) Status HbA1C 09/07/2022 09:11:09 7.3 Above high normal 4. 0-5.6 (%) Final The use of HbA1c to monitor glycemic status is based on normal hemoglobin and HbA composition. This test should not be used in patients with abnormal hemoglobin that affects the half life of the red blood cell or the in vivo glycation rates. Glucose, estimated average 09/07/2022 09:11:09 163 Above high normal <126 (mg/dL) Fin al Performing Location [facility] [address] [facility] [address]
--- OUTSIDE RECORDS SUMMARY | 2023-02-17 09:21 | External Medical Summary | Summary of Care ---
Author Name Unknown Organization [facility] Address [address] [place] [address] Phone [phone] Care Team Providers Care Drill Foreman Name Role Phone Jackie Rivera MD Primary Care Provid er Reason for Visit * Reason Comments Outpatient Testing Encounter Details Date Type Department Care Team Description 09/07/2022 Laboratory Laboratory, [place] [address] [place] [address] [place] [address] [place] [address] Type 2 diabetes mellitus with hemoglobin A1c goal of less than 7.0% (HCC); Hypertriglyceridemia Allergies No known active allergiesdocumented as of this encounter (statuses as of 09/07/2022) Medications Medication Sig Dispensed Refills Start Date End Date Status Accu-Chek Guide Me w/Device Kit Use as directed. Use to test blood sugars 4 times a day Dx: E11.9 may substitute preferred brand 1 Kit 0 07/03/2020 Active Empagliflozin 25 MG Oral Tablet (Jardiance)Indicatio ns:Type 2 diabetes mellitus with hemoglobin A1c goal of less than 7.0% (HCC) Take 1 Tablet by mouth in the morning. 90 Tablet 3 03/10/2022 Active Lisinopril 5 MG Oral Tablet (Prinivil)Indication s:Microalbuminuria,H TN, goal below 130/80 Take 1 Tablet by mouth in the morning. 90 Tablet 1 03/10/2022 Active Accu-Chek Guide In Vitro Strip (Glucose Blood)Indications:Ty pe 2 diabetes mellitus with hemoglobin A1c goal of less than 7.0% (HCC) USE TO TEST BLOOD SUGARS 4 TIMES A DAY DX: E11.9 MAY SUBSTITUTE PREFERRED BRAND 400 Strip 3 03/10/2022 Active Accu-Chek FastClix LancetsIndications:T ype 2 diabetes mellitus with hemoglobin A1c goal of less than 7.0% (HCC) Use to test blood sugars 4 times a day Dx: E11.9 may substitute preferred brand 408 Each 3 03/10/2022 Active metFORMIN HCl 1000 MG Oral Tablet (Glucophage)Indicati ons:Type 2 diabetes mellitus with hemoglobin A1c goal of less than 7.0% (HCC) TAKE BY MOUTH 1 TABLET 2 TIMES A DAY WITH MORNING AND EVENING MEALS . 180 Tablet 3 03/10/2022 Active Gemfibrozil 600 MG Oral Tablet (Lopid)Indications:H igh triglycerides,Dyslip idemia, goal LDL below 100 Take 1 tab once a day in the morning. 90 Tablet 3 03/10/2022 Active NovoLOG FlexPen 100 UNIT/ML Subcutaneous Solution Pen-injector (insulin aspart)Indications:T ype 2 diabetes mellitus with hemoglobin A1c goal of less than 7.0% (HCC) INJECT 30 UNITS BEFORE BREAKFAST, 36 UNITS BEFORE LUNCH, 30 UNITS BEFORE SUPPER Strength: 100 UNIT/ML 30 mL 3 03/10/2022 Active Insulin Glargine Solostar 100 UNIT/ML Subcutaneous Solution Pen-injector Inject 36 Units under the skin in the morning. 45 mL 3 05/06/2022 Active Fluticasone Propionate 50 MCG/ACT Nasal Suspension (Flonase)Indications :Viral URI with cough Administer 2 Sprays into each nostril in the morning. 1 Each 0 05/26/2022 Active Benzonatate 100 MG Oral CapsuleIndications:V iral URI with cough Take 1 Capsule by mouth 3 times a day as needed for Cough. 30 Capsule 1 05/26/2022 Active ProAir HFA 108 (90 Base) MCG/ACT Inhalation Aerosol SolutionIndications: Viral URI with cough Inhale 2 Puffs by mouth every 4 hours as needed for Wheezing or Dyspnea. 1 g 0 05/26/2022 Active Ondansetron HCl 4 MG Oral TabletIndications:Vi ral URI with cough Take 1 Tablet by mouth every 8 hours as needed for Nausea for up to 12 doses. 12 Tablet 0 05/26/2022 Active BD Pen Needle Short U/F 31G X 8 MM (Insulin Pen Needle)Indications:T ype 2 diabetes mellitus with hemoglobin A1c goal of less than 7.0% (HCC) USE WITH LANTUS AND NOVOLOG TO INJECT 4 TIMES A DAY. DX E11.9 300 Each 2 06/19/2022 Active Mounjaro 10 MG/0.5ML Subcutaneous Solution Pen-injector (Tirzepatide)Indicat ions:Type 2 diabetes mellitus with hemoglobin A1c goal of less than 7.0% (HCC) Inject 10 mg under the skin once a week. 2 mL 3 08/30/2022 Active documented as of this encounter (statuses as of 09/07/2022) Active Problems Problem Noted Date Microalbuminuria 03/10/2022 Food insecurity 01/19/2022 Overview: Per [facility] Protocol Family history of Troy's disease 11/14 Severe obesity with body mas s index (BMI) of 35.0 to 39.9 with serious comorbidity 11/04/2021 Obesity, Class II, BMI 35-39.9, isolated (see actual BMI) 05/20/2020 Affective psychosis, bipolar 11/05/2016 HTN, goal below 130/80 10/26/2011 Overview: Per HTN Protocol #27. DYSLIPIDEMIA, GOAL LDL BELOW 100 009 Overview: Per Lipid Taxonomy. Type 2 diabetes mellitus with hemoglobin A1c goal of less than 7.0% 01/03/2009 Overview: Per Diabetes Taxonomy. ICD-10 update of inactive term High triglycerides 11/04/2008 Anxiety state Overview: sees Psychiatry [place] documented as of this encounter (statuses as of 09/07/2022) Resolved Problems Problem Noted Date Resolved Date Obesity, morbid (more than 1 00 lbs over ideal weight or BMI > 40) 08/20/2009 06/10/2017 Overview: Per Obesity Protocol, #19 ICD-10 update of inactive term Major depressive disorder 2016 Overview: sees Psychiatry ICD-10 update of inactive term Bipolar disorder 11/05/2016 Overview: sees Psychiatry documented as of this encounter (statuses as of 09/07/2022) Immunizations Name Administration Dates Next Due HPV [...] on file documented as of this encounter Plan of Treatment Upcoming Encounters Date Type Specialty Care Team Description 09/11/2022 Office Visit Family Medicine Jackie Rivera MD [address] [place] [facility] [place] [address] 10/06/2022 Office Visit Pharmacy [facility] [address] [place] [address] Pending Results Name Type Priority Associated Diagnoses Date /Time HEMOGLOBIN A1C Lab Routine Type 2 diabetes mellitus with hemoglobin A1c goal of less than 7.0% (HCC) 09/07/2022 9:11 AM EDT VITAMIN B12 Lab Routine Type 2 diabetes mellitus with hemoglobin A1c goal of less than 7.0% (HCC) 09/07/2022 9:11 AM EDT LIPID PANEL WITH DIRECT LDL IF TG IS HIGH Lab Routine Hypertriglyceridemia 09/07/2022 9:11 AM EDT Health Maintenance Due Date Last Done Comments COVID-19 Vaccine (#1) 1985 Hepatitis C Screening 06/27/2003 Pneumococcal Vaccine: Pediatrics (0 to 5 Years) and At-Risk Patients (6 to 64 Years) (2 - PCV) 04/11/2010 04/11/2009 Yearly B-12 05/20/2022 05/20/2021, 04/09, 01/06/2019, Additional history exists DIABETES-EYE EXAM 06/12/2022 06/12/2021, , 04/11/2009 HbA1c 11/02/2022 05/05/2022, 10/08, 05/20/2021, Additional history exists DIABETES-FOOT EXAM 11/04/2022 11/04/2021, 0 08/08/2020, 10/11/2019, Additional history exists Depression Screening, Annual for Pts 12 and Over 11/04/2022 11/04/2021 Influenza Vaccine (FLU shot) (#1) 2022 01/01/2021, 12/25/2019, 11/14/2018, Additional history exists Albumin/Creatinine Ratio 05/05/2023 023, 04/30/2020, 05/10/2018, Additional history exists GFR 05/05/2023 05/05/2022, 10/08, 05/20/2021, Additional history exists Pap Smear 12/22/2023 12/21/2018 [...] A1c goal of less than 7.0% (HCC) Hypertriglyceridemia Pure hyperglyceridemia documented in this encounter Care Teams Drill Foreman Relationship Specialty Start Date End Date Jackie Rivera MD [address] [facility] [place] [id number] PCP - General Family Medicine 11/03/21 documented as of this encounter
--- OUTSIDE RECORDS SUMMARY | 2023-02-17 09:21 | External Medical Summary ---
Author Name Unknown Address Unknown Organization [id number]:[facility] - [address] [facility] [address] Laboratory Report Ordering Provider Test Date Status JASPREET BENITO 09/07/2022 09:11:44 Final Observation Date Value Abnormality Reference (Units ) Status LDL, (direct) 09/07/2022 09:11:44 85 <=129 (mg/dL) Final LDL Cholesterol Reference Ra nges (mg/dL):
<70 Target level for high risk ASCVD patient
<100 Optimal for general population
100-129 Near optimal for general population
130-159 Borderline high
160-189 High
>=190 Very high Performing Location [facility] [address] [facility] [address]
--- OUTSIDE RECORDS SUMMARY | 2023-02-17 09:21 | External Medical Summary ---
Author Name Unknown Address Unknown Organization [id number]:[facility] - [address] [place] [address] Laboratory Report Ordering Provider Test Date Status KELLY HERNANDEZ 09/07/2022 09:11:09 Final Observation Date Value Abnormality Reference (Units ) Status Vitamin B12 09/07/2022 09:11:09 100 [id number] (pg/mL) Final Performing Location [facility] - [address] [place] [address]
--- OUTSIDE RECORDS SUMMARY | 2023-02-17 09:21 | External Medical Summary | Summary of Care ---
Author Name Unknown Organization [facility] Address [address] [place] [address] Phone [phone] Care Team Providers Care Water Filtration Technician Name Role Phone Thong Vogel MD Primary Care Provid er Reason for Visit * Reason Comments eRx-Medication Refill Encounter Details Date Type Department Care Team Description 09/10/2022 Refill [facility] [address] [place] [address] Thong Vogel MD [address] [place] [address] Microalbuminuria; HTN, goal below 130/80 Allergies No known active allergiesdocumented as of this encounter (statuses as of 09/10/2022) Medications Medication Sig Dispensed Refills Start Date [...] goal of less than 7.0% ([facility]) Use to test blood sugars 4 times a day Dx: E11.9 may substitute preferred brand 408 Each 3 03/10/2022 Active metFORMIN HCl 1000 MG Oral Tablet (Glucophage)Indic ations:Type 2 diabetes mellitus with hemoglobin A1c goal of less than 7.0% ([facility]) TAKE BY MOUTH 1 TABLET 2 TIMES [...] goal of less than 7.0% ([facility]) INJECT 30 UNITS BEFORE BREAKFAST, 36 UNITS [...] 0 05/26/2022 Active Benzonatate 100 MG Oral CapsuleIndication s:Viral URI with cough Take 1 Capsule by mouth 3 times a day as needed for Cough. 30 Capsule 1 05/26/2022 Active ProAir HFA 108 (90 Base) MCG/ACT Inhalation Aerosol SolutionIndicatio ns:Viral URI with cough Inhale 2 Puffs by mouth every 4 hours as needed for Wheezing or Dyspnea. 1 g 0 05/26/2022 Active Ondansetron HCl 4 MG Oral TabletIndications :Viral URI with cough Take 1 Tablet by [...] week. 2 mL 3 08/30/2022 Active Lisinopril 5 MG Oral Tablet (Prinivil)Indicat ions:Microalbumin uria,HTN, goal below 130/80 TAKE 1 TABLET BY MOUTH EVERY DAY IN THE MORNING 90 Tablet 2 09/10/2022 Active Lisinopril 5 MG Oral Tablet (Prinivil)Indicat ions:Microalbumin uria,HTN, goal below 130/80 Take 1 Tablet by mouth in the morning. 90 Tablet 1 03/10/2022 3 Discontinued documented as of this encounter (statuses as of 09/10/2022) Active Problems Problem Noted Date Microalbuminuria 03/10/2022 [...] as of this encounter (statuses as of 09/10/2022) Resolved Problems Problem Noted Date Resolved Date Obesity, morbid (more than 1 00 lbs over ideal weight or BMI > 40) 08/20/2009 06/10/2017 Overview: Per Obesity Protocol, #19 ICD-10 update of inactive term Major depressive disorder 2016 Overview: sees Psychiatry ICD-10 update of inactive term Bipolar disorder 11/05/2016 Overview: sees Psychiatry documented as of this encounter (statuses as of 09/10/2022) Immunizations Name Administration Dates Next Due HPV [...] Miscellaneous Notes * Telephone Encounter - Kenan Camargo irene - 09/10/2022 5:27 PM EDTSigned Prescriptions: Disp Refills Lisinopril 5 MG Oral Tablet (Prinivil) 90 Tab*2 Sig: TAKE 1 TABLET BY MOUTH EVERY DAY IN THE MORNINGAuthorizing Provider: THONG VOGEL User: KENAN CAMARGO documented in this encounter Plan of Treatment Upcoming Encounters Date Type Specialty Care Team Description 09/11/2022 Office Visit Family Medicine Thong Vogel MD [address] [place] [address] 10/06/2022 Office Visit Pharm[facility] [address], [place] [id number] Health Maintenance Due Date Last Done Comments [...] 05/05/2023 05/05/2022, 10/08, 05/20/2021, Additional history exists Yearly B-12 09/08/2023 09/07/2022, 05/06, 04/30/2020, Additional history [...] as of this encounter Visit Diagnoses Diagnosis Microalbuminuria Proteinuria HTN, goal below 130/80 Unspecified essential hypertension documented in this encounter Care Teams Water Filtration Technician Relationship Specialty Start Date End Date Thong Vogel MD [address] [place] [address] PCP - General Family Medicine 11/03/21 documented as of this encounter
--- NOTE | 2023-02-17 09:50 | History & Physical Report ---
Date of Service February 17, 2023 Assessment & Plan (1) DKA (diabetic ketoacidosis): Plan: 37-year-old female with past med significant for type 2 diabetes, high triglycerides, dyslipidemia, hypertension, obesity, anxiety depression, presents with nausea vomiting and found to be in mild DKA. Patient was having cold symptoms with fever cough bringing up mucus body aches and went to PCPs office today and found to have influenza and was prescribed Tamiflu. Operatively taking Tamiflu patient developed lot of nausea vomiting thought to be side effect from medication and came to the ER. In the ER respiratory bio fire showed influenza A+. Blood glucose was 282. Anion gap 17 and a CO2 20 . After fluids anion gap was 14 and CO2 19 and we are called for admission for mild DKA. Mild DKA Admitting orders with DKA insulin protocol and labs and fluids per protocol were ordered Initially patient agreed to stay but later she was adamant she wanted to go home Patient was explained that her condition may get worse and develop severe DKA, renal failure and may even . But patient says that she does not care and wants to leave and was okay to sign out AMA. Before admission orders were processed patient signed out AMA Admission and Anticipated Discharge Date Admission Date: February 17, 2023 History of Present Illness Chief Complaint: Influenza, mild DKA Primary Care Provider: Jackie Rivera MD 37-year-old female with past med significant for type 2 diabetes, high triglycerides, dyslipidemia, hypertension, obesity, anxiety depression, presents with nausea vomiting and found to be in mild DKA. Patient was having cold symptoms with fever cough bringing up mucus body aches and went to PCPs office today and found to have influenza and was prescribed Tamiflu. After taking Tamiflu patient developed lot of nausea vomiting thought to be side effect from medication and came to the ER. In the ER respiratory bio fire showed influenza A+. Blood glucose was 282. Anion gap 17 and a CO2 20 . After fluids anion gap was 14 and CO2 19 and we are called for admission for mild DKA. Initially patient agreed to stay until at least in the evening. Complains of cold symptoms. Having some abdominal discomfort in the epigastric region radiating to her chest and it is more with a cough. Some headache. Vision is okay. No nausea. No diarrhea. Normal bladder movements. Past medical history. As mentioned above Past surgical history. Foot/toe surgery Social history. No smoking. No alcohol use. No drug use. Family history. Father had diabetes, heart disorder. Maternal grandfather had diabetes. Paternal grandfather diabetes. Paternal grandmother had cancer, diabetes. Allergies Allergy/AdvReac Type Severity Reaction Status Date / Time No Known Allergies Allergy Verified 02/17/23 01:18 Home Medications Medication Instructions Recorded Confirmed Type acetaminophen 500 mg tablet 1,000 mg PO Q6H PRN PAIN/FEVER 02/17/23 02/17/23 History (Tylenol Extra Strength) doxylamine 6.25 mg-PE 5 mg-DM 10 1 tab PO DIRECTED PRN Cold 02/17/23 02/17/23 History mg-acetaminophen 325 mg tablet Symptoms (Vicks NyQuil Severe Cold-Flu) empagliflozin 25 mg tablet 25 mg PO QAM 02/17/23 02/17/23 History (Jardiance) gemfibrozil 600 mg tablet 600 mg PO QAM 02/17/23 02/17/23 History hydrocodone-homatropine 5 mg-1.5 5 ml PO DIRECTED PRN Cough 02/17/23 02/17/23 History mg/5 mL oral syrup insulin aspart U-100 100 unit/mL See Rx Instructions .Route .COMPLEX 02/17/23 02/17/23 History (3 mL) subcutaneous pen (Novolog FlexPen U-100 Insulin aspart) insulin glargine 100 unit/mL (3 36 unit subcut HS 02/17/23 02/17/23 History mL) subcutaneous pen lisinopril 2.5 mg tablet 2.5 mg PO QAM 02/17/23 02/17/23 History metformin 1,000 mg tablet 1,000 mg PO BIDM 02/17/23 02/17/23 History oseltamivir 75 mg capsule 75 mg PO BID 02/17/23 02/17/23 History pravastatin 10 mg tablet 10 mg PO QDD 02/17/23 02/17/23 History sertraline 100 mg tablet 100 mg PO BID 02/17/23 02/17/23 History tirzepatide 7.5 mg/0.5 mL 7.5 mg subcut WK 02/17/23 02/17/23 History subcutaneous pen injector (Orquidea) Past Med/Surg History Medical History Anxiety Bipolar 1 disorder Depression Dyslipidemia Hypertension Type 2 diabetes mellitus Surgical History No pertinent past surgical history Social History Smoking Status: Never smoker Tobacco Type: Cigarettes Preferred Language: Persian Feels Safe at Home: Yes Review of Systems Review of Systems: All systems reviewed & are unremarkable except as noted in HPI & below Physical Exam Physical Exam: General- Not in distress Head- atraumatic Eyes- PERRL. ENT- oropharynx clear Neck- supple, no JVD Lungs- clear to auscultation no wheezing or crackles. Heart- regular rhythm; no murmur, no gallop. Abdomen- normal bowel sounds, soft, nontender, no distension. Extremities- no pretibial edema, no erythema seen. Neuro- alert, oriented x 3; PERRL, no facial palsy; no dysarthria; moves extremities Skin- warm & dry Results & Data Results & Data Vital Signs (Past 12 Hours) Vital Signs Temp Pulse Pulse Resp BP BP Pulse Ox 02/17/23 04:13 103 H 26 H 94 02/17/23 04:13 103 H 02/17/23 02:19 105 H 16 139/91 97 02/17/23 00:26 37.2 C 115 H 18 164/90 H 93 02/17/23 00:21 37.3 C 112 H 16 164/90 H 93 O2 Del Method 02/17/23 04:13 02/17/23 04:13 02/17/23 02:19 Room Air 02/17/23 00:26 Room Air 02/17/23 00:21 Room Air Diagnostic Findings Laboratory Results WBC 8.81 K/ul (4.8-10.8) 02/17/23 00:22 RBC 4.95 M/uL (4.20-5.40) 02/17/23 00:22 Hgb 14.2 g/dl (12.0-16.0) 02/17/23 00:22 Hct 42.7 % (37.0-47.0) 02/17/23 00:22 MCV 86.3 fL (80.0-100.0) 02/17/23 00:22 MCH 28.7 pg (25.0-34.0) 02/17/23 00:22 MCHC 33.3 g/dL (32.0-36.0) 02/17/23 00:22 RDW Std Deviation 41.6 fL (36.4-46.3) 02/17/23 00: RDW Coeff of Gloria 13.2 % (11.5-14.5) 02/17/23 00:22 Plt Count 106 K/uL (130-400) L 02/17/23 00:22 MPV 11.8 fL (9.4-12.4) 02/17/23 00:22 Immature Gran % (Auto) 0.5 % 02/17/23 00:22 Neut % (Auto) 90.3 % 02/17/23 00:22 Lymph % (Auto) 3.0 % 02/17/23 00:22 Bucks % (Auto) 6.1 % 02/17/23 00:22 Eos % (Auto) 0.0 % 02/17/23 00:22 Baso % (Auto) 0.1 % 02/17/23 00:22 Neut # (Auto) 7.96 K/uL (1.40-6.50) H 02/17/23 00:22 Lymph # (Auto) 0.26 K/uL (1.20-3.40) L 02/17/23 00:22 Bucks # (Auto) 0.54 K/uL (0.11-0.59) 02/17/23 00:22 Eos # (Auto) 0.00 K/uL (0.00-0.50) 02/17/23 00:22 Baso # (Auto) 0.01 K/uL (0.00-0.20) 02/17/23 00:22 Immature Gran # (Auto) 0.04 K/uL (0.01-0.20) 02/17/23 00:22 Sodium 136 mmol/L (136-145) 02/17/23 02:15 Potassium 3.8 mmol/L (3.5-5.1) 02/17/23 02:15 Chloride 103 mmol/L (98-107) 02/17/23 02:15 Carbon Dioxide 19 mmol/L (21-32) L 02/17/23 02:15 Anion Gap 14 (3-11) H 02/17/23 02:15 BUN 11 mg/dl (6-23) 02/17/23 02:15 Creatinine 0.62 mg/dl (0.6-1.2) 02/17/23 02:15 Est Cr Clr Drug Dosing 133.5 ml/min 02/17/23 02:15 Est GFR ( Amer) 133.5 ml/min 02/17/23 02:15 Est GFR (Non-Af Amer) 115.2 ml/min 02/17/23 02:15 BUN/Creatinine Ratio 17.7 (10-20) 02/17/23 02:15 Glucose 282 mg/dl (70-99(Fasting)) H 02/17/23 02:15 Calcium 8.2 mg/dl (8.6-10.3) L 02/17/23 02:15 Total Bilirubin 0.7 mg/dl (0.2-1.0) 02/17/23 00:22 AST 10 U/L (13-39) L 02/17/23 00:22 ALT 16 U/L (7-52) 02/17/23 00:22 Alkaline Phosphatase 44 U/L (34-104) 02/17/23 00:22 Total Protein 8.5 gm/dl (6.0-8.3) H 02/17/23 00:22 Albumin 4.5 gm/dl (3.4-5.0) 02/17/23 00:22 Globulin 4.0 gm/dl (2.5-4.0) 02/17/23 00:22 Albumin/Globulin Ratio 1.1 (0.9-2) 02/17/23 00:22 Adenovirus (PCR) Not Detected (NotDetected) 02/17/23 00:20 B. pertussis DNA (PCR) Not Detected (NotDetected) 02/17/23 00:20 B.parapertussis DNA PCR Not Detected (NotDetected) 02/17/23 00:20 C. pneumoniae DNA (PCR) Not Detected (NotDetected) 02/17/23 00:20 Coronavirus OC43 (PCR) Not Detected (NotDetected) 02/17/23 00:20 Coronavirus HKU1 (PCR) Not Detected (NotDetected) 02/17/23 00:20 Coronavirus 229E (PCR) Not Detected (NotDetected) 02/17/23 00:20 SARS-CoV-2 (PCR) Not Detected (NotDetected) 02/17/23 00:20 Coronavirus NL63 (PCR) Not Detected (NotDetected) 02/17/23 00:20 Human Metapneumovir PCR Not Detected (NotDetected) 02/17/23 00:20 Influenza A (H3) PCR DETECTED (NotDetected) A* 02/17/23 00:20 Influenza Type B (PCR) Not Detected (NotDetected) 02/17/23 00:20 M. pneumoniae (PCR) Not Detected (NotDetected) 02/17/23 00:20 Parainfluenza 1 (PCR) Not Detected (NotDetected) 02/17/23 00:20 Parainfluenza 2 (PCR) Not Detected (NotDetected) 02/17/23 00:20 Parainfluenza 3 (PCR) Not Detected (NotDetected) 02/17/23 00:20 Parainfluenza 4 (PCR) Not Detected (NotDetected) 02/17/23 00:20 RSV (PCR) Not Detected (NotDetected) 02/17/23 00:20 Entero/Rhino (PCR) Not Detected (NotDetected) 02/17/23 00:20 ECG Additional Comments: ECG sinus tachycardia rate of 109. Incomplete right bundle branch block. QTc 517. Code Status & VTE Plan VTE Prophylaxis Plan VTE Prophylaxis will be ordered: Yes
--- NOTE | 2023-02-17 09:53 | Discharge Summary ---
Date of Service February 17, 2023 Admission HPI Per Admitting Provider 37-year-old female with past med significant for type 2 diabetes, high triglycerides, dyslipidemia, hypertension, obesity, anxiety depression, presents with nausea vomiting and found to be in mild DKA. Patient was having cold symptoms with fever cough bringing up mucus body aches and went to PCPs office today and found to have influenza and was prescribed Tamiflu. After taking Tamiflu patient developed lot of nausea vomiting thought to be side effect from medication and came to the ER. In the ER respiratory bio fire showed influenza A+. Blood glucose was 282. Anion gap 17 and a CO2 20 . After fluids anion gap was 14 and CO2 19 and we are called for admission for mild DKA. Initially patient agreed to stay until at least in the evening. Complains of cold symptoms. Having some abdominal discomfort in the epigastric region radiating to her chest and it is more with a cough. Some headache. Vision is okay. No nausea. No diarrhea. Normal bladder movements. Past medical history. As mentioned above Past surgical history. Foot/toe surgery Social history. No smoking. No alcohol use. No drug use. Family history. Father had diabetes, heart disorder. Maternal grandfather had diabetes. Paternal grandfather diabetes. Paternal grandmother had cancer, diabetes. Admission Exam (Per Admitting) Constitutional General- Not in distress Head- atraumatic Eyes- PERRL. ENT- oropharynx clear Neck- supple, no JVD Lungs- clear to auscultation no wheezing or crackles. Heart- regular rhythm; no murmur, no gallop. Abdomen- normal bowel sounds, soft, nontender, no distension. Extremities- no pretibial edema, no erythema seen. Neuro- alert, oriented x 3; PERRL, no facial palsy; no dysarthria; moves extremities Skin- warm & dry Discharge Data Consultations 02/17/23 04:02 ED Decision to Admit Stat Hospital Course (1) DKA (diabetic ketoacidosis): (1) DKA (diabetic ketoacidosis): Plan: 37-year-old female with past med significant for type 2 diabetes, high triglycerides, dyslipidemia, hypertension, obesity, anxiety depression, presents with nausea vomiting and found to be in mild DKA. Patient was having cold symptoms with fever cough bringing up mucus body aches and went to PCPs office today and found to have influenza and was prescribed Tamiflu. Operatively taking Tamiflu patient developed lot of nausea vomiting thought to be side effect from medication and came to the ER. In the ER respiratory bio fire showed influenza A+. Blood glucose was 282. Anion gap 17 and a CO2 20 . After fluids anion gap was 14 and CO2 19 and we are called for admission for mild DKA. DKA Admitting orders with DKA insulin protocol and labs and fluids per protocol were ordered Initially patient agreed to stay but later she was adamant she wanted to go home Patient was explained that her condition may get worse and develop severe DKA, renal failure and may even . But patient says that she does not care and wants to leave and was okay to sign out AMA. Before admission orders were processed patient signed out AMA
--- NOTE | 2023-02-17 14:32 | Electrocardiogram Report ---
Test Reason : Blood Pressure : / mmHG Vent. Rate : 109 BPM Atrial Rate : 109 BPM P-R Int : 114 ms QRS Dur : 102 ms QT Int : 384 ms P-R-T Axes : 019 -10 018 degrees QTc Int : 517 ms Sinus tachycardia Incomplete right bundle branch block Borderline ECG When compared with ECG of 23-JUL-2009 20:12, No significant change Confirmed by Doc Cuevas ([id number]) on 02/17/2023 2:31:54 PM Referred By: REFERRED SELF Confirmed By:Doc Cuevas
== END 2023-02-17 06:06 | disposition left against medical advice (07) | DRG 639 ==
LOC: ED 00:16 → INTOOBSV 04:46 → EDINP 04:46